=== PATIENT | female | born 1945 | race Caucasian/White ===

== ENCOUNTER 2023-11-12 12:35 | Observation (INO) | payer MEDICARE ==
[2023-11-12] MEDS ORDERED: DUONEB 0.5-3 MG/3 ml Neb IH ONE (13:03)
[2023-11-12] MEDS: DUONEB 0.5-3 MG/3 ml Neb IH ONE (13:04)
--- NOTE | 2023-11-12 13:04 | ERPHSYRPT ---
- History of Present Illness Time Seen by Provider: 11/12/23 12:50 Source: patient Exam Limitations: no limitations Patient Subjective Stated Complaint: PT HERE FOR SOB FOR A WEEK NOW WORSE THE LAST 12 HOURS WITH A DRY COUGH, NO FEVER. Triage Nursing Assessment: PT ALERT, WALKED IN, RESP LABORED WITH EXCERTION, DRY COUGH. AUDIBLE WHEEXES HEARD, NO EDEMA NOTED, MOVES ALL EXT WELL Physician History: Patient is a 78-year-old female presents to our ED for evaluation of shortness of breath x 1 week. Shortness of breath is associated with a dry cough. Symptoms have been progressive. Patient states that shortness of breath became significantly worse approximately 12 hours prior to arrival. No associated chest pain. No nausea vomiting or diaphoresis. Audible wheezing observed during triage. Patient states he is otherwise healthy. She voices no other complaints or concerns at this time. Portions of this note were created with voice recognition technology. There may be grammatical, spelling, punctuation or sound alike errors Timing/Duration: week(s) (1 week) Activities at Onset: activity Severity of Dyspnea-Max: moderate Severity of Dyspnea-Current: mild Possible Cause: no prior episodes Modifying Factors: Improves With: activity Associated Symptoms: cough Allergies/Adverse Reactions: tetracycline Allergy (Verified 11/12/23 14:30) Home Medications: No Reportable Medications [No Reported Medications] 11/12/23 [History] Hx Tetanus, Diphtheria Vaccination/Date Given: No Hx Influenza Vaccination/Date Given: No Hx Pneumococcal Vaccination/Date Given: Yes Immunizations Up to Date: Yes Travel Risk - International Travel Have you traveled outside of the country in past 3 weeks: No - Coronavirus Screening Are you exhibiting any of the following symptoms?: Yes Symptoms: Cough: New Onset, Shortness of Breath Close contact with a COVID-19 positive Pt in past 14-21 Days: No - Vaccine Status Have you recieved a Covid-19 vaccination: Yes Pulling Unit Floorhand: Unknown - Vaccination Dates Date of 2cond Vaccination (if applicable): 2020 Dates if Unknown: ? - Review of Systems Constitutional: No Symptoms, No Fever, No Chills Eyes: No Symptoms Ears, Nose, & Throat: No Symptoms Respiratory: No Symptoms, No Cough, No Dyspnea Cardiac: No Symptoms, No Chest Pain, No Edema, No Syncope Abdominal/Gastrointestinal: No Symptoms, No Abdominal Pain, No Nausea, No Vomiting, No Diarrhea Genitourinary Symptoms: No Symptoms, No Dysuria Musculoskeletal: No Symptoms, No Back Pain, No Neck Pain Skin: No Symptoms, No Rash Neurological: No Symptoms, No Dizziness, No Focal Weakness, No Sensory Changes Psychological: No Symptoms Endocrine: No Symptoms Hematologic/Lymphatic: No Symptoms Immunological/Allergic: No Symptoms All Other Systems: Reviewed and Negative - Past Medical History Pertinent Past Medical History: No Other Medical History: MYNRES DISEASE - Past Surgical History Past Surgical History: Yes Female Surgical History: Hysterectomy - Social History Smoking Status: Former smoker Exposure to second hand smoke: No Drug Use: none Patient Lives Alone: No - Nursing Vital Signs Nursing Vital Signs: Initial Vital Signs Respiratory Rate 34 H 11/12/23 12:40 O2 Sat by Pulse Oximetry 93 L 11/12/23 12:40 Pain Scale Pain Intensity 0 - Physical Exam General Appearance: no apparent distress, alert Eye Exam: PERRL/EOMI Ears, Nose, Throat Exam: hearing grossly normal, normal ENT inspection, normal pharynx Neck Exam: normal inspection, supple Respiratory Exam: diminished breath sounds, rhonchi, wheezing Cardiovascular/Chest Exam: normal heart sounds, regular rate/rhythm Abdominal/Gastrointestinal Exam: soft, No tenderness, No distention, No mass Extremity Exam: non-tender, normal range of motion, normal inspection, no calf tenderness, no pedal edema Neurologic Exam: alert, oriented x 3, cooperative, materials management clerk II-XII nml as tested, sensation nml, No motor deficits Skin Exam: normal color, warm, No dry Lymphatic Exam: No adenopathy SpO2 Interpretation: normal SpO2: 93 O2 Delivery: Room Air - Course Nursing assessment & vital signs reviewed: Yes EKG Interpreted by Me: RATE (86), Sinus Rhythm, NORMAL AXIS, NORMAL INTERVALS - Radiology Exams Chest X-ray Interpretation: Teleradiologist Report (Bilateral lower lobe infiltrates) Ordered Tests: Active Orders 24 hr Category Date Time Status Concrete Pipe Maker STAT Care 11/12/23 12:52 Active EKG-ER Only STAT Care 11/12/23 12:52 Active IV Insertion STAT Care 11/12/23 12:52 Active Pulse Oximetry (ED) STAT Care 11/12/23 12:52 Active CHEST 1 VIEW (PORTABLE) Stat Exams 11/12/23 15:08 Completed CBC W DIFF Stat Lab 11/12/23 12:45 Completed CMP Stat Lab 11/12/23 12:45 Completed D-DIMER QUANTITATIVE Stat Lab 11/12/23 14:43 Completed NT PRO BNPII Stat Lab 11/12/23 12:45 Completed TROPONIN Q4H Lab 11/12/23 12:45 Completed TROPONIN Q4H Lab 11/12/23 17:00 Ordered TROPONIN Q4H Lab 11/12/23 21:00 Ordered Transfer Order Routine Transfer 11/12/23 Ordered Medication Summary Generic Name Dose Route Start Last Admin Trade Name Freq PRN Reason Stop Dose Admin Azithromycin 500 mg in 250 mls @ 250 mls/hr 11/12/23 16:09 Zithromax 500 Mg/ 250 Ml Nacl Premix IV 11/12/23 17:08 STAT STA Ceftriaxone Sodium/Dextrose 2 g in 50 mls @ 100 mls/hr 11/12/23 16:10 Rocephin 2 Gm-D5w 50ml Bag IV 11/12/23 16:39 STAT STA Discontinued Medications Generic Name Dose Route Start Last Admin Trade Name Gm PRN Reason Stop Dose Admin Albuterol/Ipratropium 3 ml 11/12/23 12:52 11/12/23 13:04 Ipratropium/Albuterol Sulfate 3 Ml Ampul.Neb IH 11/12/23 12:53 3 ml STAT ONE Administration Albuterol/Ipratropium Confirm 11/12/23 13:03 Ipratropium/Albuterol Sulfate 3 Ml Ampul.Neb Administered 11/12/23 13:04 Dose 3 ml IH .STK-MED ONE Methylprednisolone Sodium 0 mg 11/12/23 12:52 11/12/23 13:09 Succinate 125 mg/ Sterile IV 11/12/23 12:53 125 mg Water 2 ml STAT ONE Administration Methylprednisolone Sodium Succinate Confirm 11/12/23 13:07 Methylprednis Sod Succ 125 Mg/2 Ml Vial Administered 11/12/23 13:08 Dose 125 mg .ROUTE .STK-MED ONE Potassium Chloride 40 meq 11/12/23 14:25 11/12/23 14:42 Potassium Chloride Tab 10 Meq Tab PO 11/12/23 14:26 40 meq STAT ONE Administration Potassium Chloride Confirm 11/12/23 14:32 Potassium Chloride Tab 10 Meq Tab Administered 11/12/23 14:33 Dose 40 meq .ROUTE .STK-MED ONE Sterile Water Confirm 11/12/23 13:07 Water For Injection,Sterile 10 Ml Vial Administered 11/12/23 13:08 Dose 10 ml IJ .[facility]-MED ONE Lab/Rad Data: Laboratory Result Diagrams 11/12/23 12:45 11/12/23 12:45 Laboratory Results 11/12/23 11/12/23 11/12/23 Range/Units 14:43 13:08 12:45 WBC (4.0-10.5) x10^3/uL RBC (4.1-5.4) x10^6/uL Hgb (12.0-16.0) g/dL Hct (35-47) % MCV (78-100) fL MCH (26-32) pg MCHC (32-36) g/dL RDW (11.5-14.0) % Plt Count (150-450) x10^3/uL MPV (7.5-11.0) fL Gran % (36.0-66.0) % Immature Gran % (Auto) (0.00-0.4) % Nucleat RBC Rel Count (0.00-0.1) % Eos # (Auto) (0-0.5) x10^3/uL Immature Gran # (Auto) (0.00-0.03) x10^3u/L Absolute Lymphs (auto) (1.0-4.6) x10^3/uL Absolute Monos (auto) (0.0-1.3) x10^3/uL Absolute Nucleated RBC (0.00-0.01) x10^3u/L Lymphocytes % (24.0-44.0) % Monocytes % (0.0-12.0) % Eosinophils % (0.00-5.0) % Basophils % (0.0-0.4) % Absolute Granulocytes (1.4-6.9) x10^3/uL Basophils # (0-0.4) x10^3/uL D-Dimer 0.66 H* (0.0-0.50) mg/L Sodium (137-145) mmol/L Potassium (3.5-5.1) mmol/L Chloride (98-107) mmol/L Carbon Dioxide (22-30) mmol/L Anion Gap (5-15) MEQ/L BUN (7-17) mg/dL Creatinine (0.52-1.04) mg/dL Estimated GFR ML/MIN Glucose (74-106) mg/dL Calcium (8.4-10.2) mg/dL Total Bilirubin (0.2-1.3) mg/dL AST (14-36) U/L ALT (0-35) U/L Alkaline Phosphatase (38-126) U/L Troponin I < 0.012 (0.000-0.034) ng/mL NT-Pro-B Natriuret Pep (<300) pg/mL Serum Total Protein (6.3-8.2) g/dL Albumin (3.5-5.0) g/dL Influenza Type A Ag NEGATIVE (NEGATIVE) Influenza Type B Ag NEGATIVE (NEGATIVE) RSV (PCR) NEGATIVE (NEGATIVE) SARS-CoV-2 (PCR) NEGATIVE (NEGATIVE) 11/12/23 11/12/23 Range/Units 12:45 12:45 WBC 8.7 (4.0-10.5) x10^3/uL RBC 4.61 (4.1-5.4) x10^6/uL Hgb 12.1 (12.0-16.0) g/dL Hct 38.4 (35-47) % MCV 83.3 (78-100) fL MCH 26.2 (26-32) pg MCHC 31.5 L (32-36) g/dL RDW 15.1 H (11.5-14.0) % Plt Count 502 H (150-450) x10^3/uL MPV 10.1 (7.5-11.0) fL Gran % 69.4 H (36.0-66.0) % Immature Gran % (Auto) 0.2 (0.00-0.4) % Nucleat RBC Rel Count 0.0 (0.00-0.1) % Eos # (Auto) 0.17 (0-0.5) x10^3/uL Immature Gran # (Auto) 0.02 (0.00-0.03) x10^3u/L Absolute Lymphs (auto) 1.64 (1.0-4.6) x10^3/uL Absolute Monos (auto) 0.75 (0.0-1.3) x10^3/uL Absolute Nucleated RBC 0.00 (0.00-0.01) x10^3u/L Lymphocytes % 18.9 L (24.0-44.0) % Monocytes % 8.6 (0.0-12.0) % Eosinophils % 2.0 (0.00-5.0) % Basophils % 0.9 (0.0-0.4) % Absolute Granulocytes 6.02 (1.4-6.9) x10^3/uL Basophils # 0.08 (0-0.4) x10^3/uL D-Dimer (0.0-0.50) mg/L Sodium 139 (137-145) mmol/L Potassium 3.2 L (3.5-5.1) mmol/L Chloride 102 (98-107) mmol/L Carbon Dioxide 25 (22-30) mmol/L Anion Gap 15.1 H (5-15) MEQ/L BUN 24 H (7-17) mg/dL Creatinine 1.34 H (0.52-1.04) mg/dL Estimated GFR 40.1 ML/MIN Glucose 115 H (74-106) mg/dL Calcium 10.0 (8.4-10.2) mg/dL Total Bilirubin 0.50 (0.2-1.3) mg/dL AST 32 (14-36) U/L ALT 28 (0-35) U/L Alkaline Phosphatase 98 (38-126) U/L Troponin I (0.000-0.034) ng/mL NT-Pro-B Natriuret Pep 73.6 (<300) pg/mL Serum Total Protein 8.4 H (6.3-8.2) g/dL Albumin 4.5 (3.5-5.0) g/dL Influenza Type A Ag (NEGATIVE) Influenza Type B Ag (NEGATIVE) RSV (PCR) (NEGATIVE) SARS-CoV-2 (PCR) (NEGATIVE) - Progress Progress: improved Air Movement: good Progress Note: 78-year-old female presents to our ED with shortness of breath. Physical exam reveals coarse diminished breath sounds with scattered wheezes. Chest x-ray reveals bilateral lower lobe infiltrates. Patient received albuterol nebulizer treatment Solu-Medrol IV antibiotics including azithromycin and Rocephin. Potassium 3.2. Potassium replacement administered. Acute renal injury observed on today's CMP. Case discussed with Dr. Tavarez who accepts admission at 4:21 PM. Plan of care discussed with patient. She agrees to admission at [facility] for further evaluation and treatment. Complexity problem addressed is moderate acute complicated No critical care time Complex of data reviewed and analyzed is extensive. Test ordered test reviewed. Results analyzed and correlated clinically with history and physical examination. Dr. Gonzalez independently reviewed the EKG. Management discussed with hospitalist who accepts admission to observation. Risk of complication and or risk of morbidity/mortality of patient management is high. Patient requires hospitalization for further evaluation and treatment. Vital stable. Time spent to admit patient is approximately 20 minutes. Plan of care established for shared decision making. No social determinants of health present impede follow-up. Portions of this note were created with voice recognition technology. There may be grammatical, spelling, punctuation or sound alike errors 11/12/23 16:27 Blood Culture(s) Obtained: Yes Antibiotics given: Yes Discussed with : Claudio Will see patient in: hospital (observation) Counseled pt/family regarding: lab results, diagnosis, rad results - Departure Departure Disposition: Observation Clinical Impression: Hypokalemia, Acute renal injury, Pneumonia, Shortness of breath Condition: Stable Critical Care Time: No Referrals: TOOTIE MARLEY, [Primary Care Provider] - Follow up/PCP as directed
[2023-11-12] MEDS ORDERED: solu-MEDROL ONE (13:07)
[2023-11-12] MEDS ORDERED: Sterile H2O 10 ml IJ ONE (13:07)
[2023-11-12] MEDS: solu-MEDROL 125 MG, Sterile H2O 10 ml 2 ML IV ONE (13:09)
[2023-11-12 13:13] LABS: Absolute Neutrophil Ct (ANC) 6.02 x10^3/uL (1.4-6.9); BASOPHIL % 0.9 % (0.0-0.4); Basophil (Absolute #) 0.08 x10^3/uL (0-0.4); Eosinophil (Absolute #) 0.17 x10^3/uL (0-0.5); Hematocrit 38.4 % (35-47); Hemoglobin 12.1 g/dL (12.0-16.0); IMMATURE GRAN # 0.02 x10^3u/L (0.00-0.03); IMMATURE GRAN % 0.2 % (0.00-0.4); Lymphocyte (Absolute #) 1.64 x10^3/uL (1.0-4.6); Lymphocytes % 18.9 % (24.0-44.0); Mean Cell Volume 83.3 fL (78-100); Mean Corpuscular Hemoglobin 26.2 pg (26-32); Mean Corpuscular Hgb Concent. 31.5 g/dL (32-36); Mean Platelet Volume 10.1 fL (7.5-11.0); Monocyte (Absolute #) 0.75 x10^3/uL (0.0-1.3); Monocytes % 8.6 % (0.0-12.0); Neutrophil % 69.4 % (36.0-66.0); Platelet Count 502 x10^3/uL (150-450); Red Blood Count 4.61 x10^6/uL (4.1-5.4); Red Cell Distribution Width 15.1 % (11.5-14.0); White Blood Count 8.7 x10^3/uL (4.0-10.5)
[2023-11-12 13:43] LABS: ALBUMIN 4.5 g/dL (3.5-5.0); ANION GAP 15.1 MEQ/L (5-15); BILIRUBIN,TOTAL 0.5 mg/dL (0.2-1.3); Creatinine 1 1.34 mg/dL (0.52-1.04); EST GLOMERULAR FILTRATION RATE 40.1 ML/MIN; NT PRO BNPII 73.6 pg/mL (<300); Potassium 3.2 mmol/L (3.5-5.1); Total Protein 8.4 g/dL (6.3-8.2)
[2023-11-12 13:51] LABS: INFLUENZA A NEGATIVE (NEGATIVE); INFLUENZA B NEGATIVE (NEGATIVE); RESPIRATORY SYNCTIAL VIRUS NEGATIVE (NEGATIVE); SARS-CoV-2 Xpert Express NEGATIVE (NEGATIVE)
[2023-11-12] MEDS ORDERED: Klor Con ONE (14:32)
[2023-11-12] MEDS: Klor Con PO ONE (14:42)
--- NOTE | 2023-11-12 16:01 | XRAY ---
Indication: Short of breath. Comparison: September 11, 2018 Portable chest demonstrates new minimal hazy bibasilar infiltrates versus atelectasis. Remaining heart and lungs unremarkable again with incidental tiny calcified granulomas. Bony thorax intact again with mild degenerative changes.
[2023-11-12] MEDS ORDERED: ROCEPHIN 2 Gm-D5w 50ML BAG** 2 G/50 ML IVPB IV ONE (16:44)
[2023-11-12] MEDS: ROCEPHIN 2 Gm-D5w 50ML BAG** 2 G/50 ML IVPB IV STA (16:48)
--- NOTE | 2023-11-12 17:52 | PCM.HP ---
History of Present Illness - Chief Complaint Chief Complaint: SOB, Pneumonia Date: 11/12/23 History of Present Illness: is a 78 year old female with pmhx of menier's disease. She presented to our ED for evaluation of shortness of breath x 1 week. Shortness of breath is associated with a dry cough. Symptoms have been progressive. Patient states that shortness of breath became significantly worse approximately 12 hours prior to arrival. No associated chest pain. No nausea vomiting or diaphoresis. Patient states he is otherwise healthy. She voices no other complaints or concerns at this time. She continues to have wheezing in BLLL. Will continue duo nebs, and antibiotocs. She is at baseline RA. D-dimer elevated, therapeutic lovenox started. Will hold home med for menier's. If kidney function improves will order CTA. Will start IVF. She denies, CP, Abd. pain, N/V/D. She is very anxious but refuses any further meds at this time. - Review of Systems Constitutional: No Fever, No Chills Eyes: No Symptoms Ears, Nose, & Throat: No Symptoms Respiratory: Short Of Breath, Wheezing Cardiac: No Chest Pain, No Edema, No Syncope Abdominal/Gastrointestinal: No Abdominal Pain, No Nausea, No Vomiting, No Diarrhea Genitourinary Symptoms: No Dysuria Musculoskeletal: No Back Pain, No Neck Pain Skin: No Rash Neurological: No Dizziness, No Focal Weakness, No Sensory Changes Psychological: No Symptoms Endocrine: No Symptoms Hematologic/Lymphatic: No Symptoms Immunological/Allergic: No Symptoms Medications & Allergies Home Medications: Home Medication List Triamterene/Hydrochlorothiazid [Triamterene-Hctz 75-50 mg Tab] 1 each PO DAILY 11/12/23 [History Confirmed 11/12/23] Allergies/Adverse Reactions: Allergies Allergy/AdvReac Type Severity Reaction Status Date / Time tetracycline Allergy Verified 11/12/23 14:30 - Past Medical History Past Medical History: No Comment: MYNRES DISEASE - Past Surgical History Past Surgical History: Yes Female Surgical History: Hysterectomy - Social History Smoking Status: Former smoker Exposure to second hand smoke: No Alcohol: None Drug Use: none - Physical Exam Vital Signs: Vital Signs - 24 hr Temp Pulse Resp BP BP Pulse Ox 11/12/23 17:30 97.9 F 94 H 16 143/61 94 L 11/12/23 17:00 80 22 116/62 93 L 11/12/23 16:32 93 L 11/12/23 16:30 129/64 91 L 11/12/23 16:00 83 24 131/58 92 L 11/12/23 15:30 83 29 H 135/65 94 L 11/12/23 15:00 82 25 H 128/62 96 11/12/23 14:30 80 25 H 120/68 95 11/12/23 14:00 81 30 H 123/67 94 L 11/12/23 13:30 88 26 H 128/83 89 L 11/12/23 13:17 95 11/12/23 13:05 80 24 94 L 11/12/23 13:01 84 25 H 133/67 96 11/12/23 12:41 97.4 F 88 34 H 161/100 93 L 11/12/23 12:40 34 H 93 L General Appearance: no apparent distress, alert Neurologic Exam: alert, oriented x 3, cooperative, normal mood/affect, nml cerebellar function, nml station & gait, sensation nml, No motor deficits Eye Exam: PERRL/EOMI, eyes nml inspection Ears, Nose, Throat Exam: normal ENT inspection, TMs normal, pharynx normal, moist mucous membranes Neck Exam: normal inspection, non-tender, supple, full range of motion Respiratory Exam: wheezing (BLLL), No respiratory distress Cardiovascular Exam: regular rate/rhythm, normal heart sounds, normal peripheral pulses Gastrointestinal/Abdomen Exam: soft, normal bowel sounds, No tenderness, No mass Back Exam: normal inspection, normal range of motion, No CVA tenderness, No vertebral tenderness Extremity Exam: normal inspection, normal range of motion, pelvis stable Skin Exam: normal color, warm, dry, No rash Lymphatic Exam: No adenopathy Results - Labs Lab/Micro Results: Lab Results-Last 24 Hours 11/12/23 11/12/23 11/12/23 Range/Units 12:45 12:45 12:45 WBC 8.7 (4.0-10.5) x10^3/uL RBC 4.61 (4.1-5.4) x10^6/uL Hgb 12.1 (12.0-16.0) g/dL Hct 38.4 (35-47) % MCV 83.3 (78-100) fL MCH 26.2 (26-32) pg MCHC 31.5 L (32-36) g/dL RDW 15.1 H (11.5-14.0) % Plt Count 502 H (150-450) x10^3/uL MPV 10.1 (7.5-11.0) fL Gran % 69.4 H (36.0-66.0) % Immature Gran % (Auto) 0.2 (0.00-0.4) % Nucleat RBC Rel Count 0.0 (0.00-0.1) % Eos # (Auto) 0.17 (0-0.5) x10^3/uL Immature Gran # (Auto) 0.02 (0.00-0.03) x10^3u/L Absolute Lymphs (auto) 1.64 (1.0-4.6) x10^3/uL Absolute Monos (auto) 0.75 (0.0-1.3) x10^3/uL Absolute Nucleated RBC 0.00 (0.00-0.01) x10^3u/L Lymphocytes % 18.9 L (24.0-44.0) % Monocytes % 8.6 (0.0-12.0) % Eosinophils % 2.0 (0.00-5.0) % Basophils % 0.9 (0.0-0.4) % Absolute Granulocytes 6.02 (1.4-6.9) x10^3/uL Basophils # 0.08 (0-0.4) x10^3/uL D-Dimer (0.0-0.50) mg/L Sodium 139 (137-145) mmol/L Potassium 3.2 L (3.5-5.1) mmol/L Chloride 102 (98-107) mmol/L Carbon Dioxide 25 (22-30) mmol/L Anion Gap 15.1 H (5-15) MEQ/L BUN 24 H (7-17) mg/dL Creatinine 1.34 H (0.52-1.04) mg/dL Estimated GFR 40.1 ML/MIN Glucose 115 H (74-106) mg/dL Calcium 10.0 (8.4-10.2) mg/dL Total Bilirubin 0.50 (0.2-1.3) mg/dL AST 32 (14-36) U/L ALT 28 (0-35) U/L Alkaline Phosphatase 98 (38-126) U/L Troponin I < 0.012 (0.000-0.034) ng/mL NT-Pro-B Natriuret Pep 73.6 (<300) pg/mL Serum Total Protein 8.4 H (6.3-8.2) g/dL Albumin 4.5 (3.5-5.0) g/dL Influenza Type A Ag (NEGATIVE) Influenza Type B Ag (NEGATIVE) RSV (PCR) (NEGATIVE) SARS-CoV-2 (PCR) (NEGATIVE) 11/12/23 11/12/23 11/12/23 Range/Units 13:08 14:43 16:45 WBC (4.0-10.5) x10^3/uL RBC (4.1-5.4) x10^6/uL Hgb (12.0-16.0) g/dL Hct (35-47) % MCV (78-100) fL MCH (26-32) pg MCHC (32-36) g/dL RDW (11.5-14.0) % Plt Count (150-450) x10^3/uL MPV (7.5-11.0) fL Gran % (36.0-66.0) % Immature Gran % (Auto) (0.00-0.4) % Nucleat RBC Rel Count (0.00-0.1) % Eos # (Auto) (0-0.5) x10^3/uL Immature Gran # (Auto) (0.00-0.03) x10^3u/L Absolute Lymphs (auto) (1.0-4.6) x10^3/uL Absolute Monos (auto) (0.0-1.3) x10^3/uL Absolute Nucleated RBC (0.00-0.01) x10^3u/L Lymphocytes % (24.0-44.0) % Monocytes % (0.0-12.0) % Eosinophils % (0.00-5.0) % Basophils % (0.0-0.4) % Absolute Granulocytes (1.4-6.9) x10^3/uL Basophils # (0-0.4) x10^3/uL D-Dimer 0.66 H* (0.0-0.50) mg/L Sodium (137-145) mmol/L Potassium (3.5-5.1) mmol/L Chloride (98-107) mmol/L Carbon Dioxide (22-30) mmol/L Anion Gap (5-15) MEQ/L BUN (7-17) mg/dL Creatinine (0.52-1.04) mg/dL Estimated GFR ML/MIN Glucose (74-106) mg/dL Calcium (8.4-10.2) mg/dL Total Bilirubin (0.2-1.3) mg/dL AST (14-36) U/L ALT (0-35) U/L Alkaline Phosphatase (38-126) U/L Troponin I < 0.012 (0.000-0.034) ng/mL NT-Pro-B Natriuret Pep (<300) pg/mL Serum Total Protein (6.3-8.2) g/dL Albumin (3.5-5.0) g/dL Influenza Type A Ag NEGATIVE (NEGATIVE) Influenza Type B Ag NEGATIVE (NEGATIVE) RSV (PCR) NEGATIVE (NEGATIVE) SARS-CoV-2 (PCR) NEGATIVE (NEGATIVE) - Radiology Impressions Radiology Exams & Impressions: Radiology Procedures Category Date Time Status CHEST 1 VIEW (PORTABLE) Stat Exams 11/12/23 15:08 Completed Assessment/Plan (1) Pneumonia Current Visit: Yes Status: Acute Assessment & Plan: - Continue antibiotocs and duonebs - RA- 94% - CXR Portable chest demonstrates new minimal hazy bibasilar infiltrates versus atelectasis. Remaining heart and lungs unremarkable again with incidental tiny calcified granulomas. Bony thorax intact again with mild degenerative changes. - BNP 71 Code(s): J18.9 - PNEUMONIA, UNSPECIFIED ORGANISM (2) Shortness of breath Current Visit: Yes Status: Acute Assessment & Plan: - 2:2 pneumonia - improved on admission - Room air Code(s): R06.02 - SHORTNESS OF BREATH (3) Acute renal injury Current Visit: Yes Status: Acute Assessment & Plan: - creat 1.34- appears to be chronic per old labs - Pt reports no CKD hx - she does take medication for menier's that could cause worsening. - Will start IVF- NS @ 73 Code(s): N17.9 - ACUTE KIDNEY FAILURE, UNSPECIFIED (4) Hypokalemia Current Visit: Yes Status: Acute Assessment & Plan: - K+ 3.2 replaced in ER - trend Code(s): E87.6 - HYPOKALEMIA (5) Obesity (BMI 30.0-34.9) Current Visit: Yes Status: Chronic Assessment & Plan: - advised diet and exercise control. Code(s): E66.9 - OBESITY, UNSPECIFIED (6) Elevated d-dimer Current Visit: Yes Status: Acute Assessment & Plan: - d-dimer 0.66 - 2:2 pneumonia ? - will order CTA when MERT improves - therapeutic Lovenox for now Code(s): R79.89 - OTHER SPECIFIED ABNORMAL FINDINGS OF BLOOD CHEMISTRY (7) Anxiety Current Visit: Yes Status: Acute Assessment & Plan: - refused medication for this - states she had 3 family members recently pass away in the hospital - anxiety r/t this. Code(s): F41.9 - ANXIETY DISORDER, UNSPECIFIED (8) Meniere disease Current Visit: Yes Status: Chronic Assessment & Plan: - Hold home meds until MERT improves VTE: lovenox Next of Kin: Spouse- Elier Doty D/C plan: tomorrow Code status: Full Code(s): H81.09 - MENIERE'S DISEASE, UNSPECIFIED EAR Telemedicine Encounter - Telemedicine Encounter Telemedicine Encounter: The entirety of this encounter was performed via Telemedicine"
[2023-11-12] MEDS ORDERED: TYLENOL 325 MG PO PRN (19:11)
--- NOTE | 2023-11-12 19:38 | TM.IN ---
Tele-Medicine Incident Note - Incident Note Tel-Medicine Incident Note: 11/12/231935 "VeronicaeenKOSTAS Louise andhavediscussed pertinent aspects of their care with Soni Macias NP,and agree with the history, physical exam (any modifications based on my personal exam will be noted below), assessment, and plan as outlined in original note. Please see immediately below for my summary of findings and additional assessment and plan along with any meaningful corrections/explanations to the Subjective/Objective portions of the TY note will be noted." Patient has had a cough and dyspnea Coarse breath sounds at the bases. Labs reviewed Continue antibiotics. Plan to pursue CTA chest to rule out PE in AM; empiric full dose Lovenox ordered overnight. My portion of the encounter took place via telemedicine. Telemedicine Encounter - Telemedicine Encounter Telemedicine Encounter: The entirety of this encounter was performed via Telemedicine"
[2023-11-12] MEDS: ROCEPHIN 1 GM / 100 ML NaCl 1 GM/100 ML IVPB IV SCH (23:18)
[2023-11-12] MEDS: Zithromax 500 MG/ 250 ML NaCl Premix 500 MG/250 ML IVPB IV SCH (23:30)
[2023-11-12] MEDS: Sodium Chloride 0.9% 1000 ML 1,000 ML IV SCH (23:30)
[2023-11-12] MEDS: ENOXAPARIN SODIUM SQ SCH (23:31)
[2023-11-12] MEDS: Zithromax 500 MG/ 250 ML NaCl Premix 500 MG/250 ML IVPB IV STA (23:35)
[2023-11-13] MEDS: DUONEB 0.5-3 MG/3 ml Neb IH SCH (01:23)
[2023-11-13 05:28] LABS: Hematocrit 35.7 % (35-47); Hemoglobin 10.9 g/dL (12.0-16.0); Mean Cell Volume 84.2 fL (78-100); Mean Corpuscular Hemoglobin 25.7 pg (26-32); Mean Corpuscular Hgb Concent. 30.5 g/dL (32-36); Mean Platelet Volume 10.7 fL (7.5-11.0); Platelet Count 456 x10^3/uL (150-450); Red Blood Count 4.24 x10^6/uL (4.1-5.4); Red Cell Distribution Width 15.1 % (11.5-14.0); White Blood Count 7.6 x10^3/uL (4.0-10.5)
[2023-11-13 06:34] LABS: ALBUMIN 4.2 g/dL (3.5-5.0); ANION GAP 15.2 MEQ/L (5-15); BILIRUBIN,TOTAL 0.3 mg/dL (0.2-1.3); Calcium 9.5 mg/dL (8.4-10.2); Creatinine 1 1.07 mg/dL (0.52-1.04); EST GLOMERULAR FILTRATION RATE 52.5 ML/MIN; Potassium 3.4 mmol/L (3.5-5.1); Total Protein 7.9 g/dL (6.3-8.2)
[2023-11-13 08:39] VITALS: TEMP 97.7
--- NOTE | 2023-11-13 10:01 | XRAY ---
Indication: Elevated d-dimer. Multiple contiguous axial images obtained through the chest using 80 cc Isovue 370 contrast and PE protocol. Comparison: None Good opacification of the pulmonary arteries to include the lobar and segmental branches. No pulmonary embolus. Heart is not enlarged. Aorta minimally atherosclerotic without aneurysm/dissection. Right hilar lymphadenopathy measuring at least 6.2 x 4.0 x 5.2 cm effacing the right main and right middle lobe bronchi. Incidental tiny mediastinal and bilateral hilar calcified nodes. Lungs demonstrate mild diffuse pulmonary emphysema and scattered tiny calcified granulomas bilaterally. Mild right base and minimal left base dependent atelectasis. No infiltrate or effusion. Bony thorax intact with osteopenia and minimal/mild degenerative changes throughout the spine. Limited upper abdomen demonstrates colonic diverticulosis, 2.8 cm left lobe hepatic cyst, and 1.1 cm left mid renal cortical cyst. Impression: 1. Negative pulmonary embolus. 2. Right hilar lymphadenopathy with mass effect concerning for primary versus metastatic malignancy. 3. Chronic findings including pulmonary emphysema, arteriosclerotic disease, chronic bony findings, colonic diverticulosis, hepatic/left renal cysts, and old granulomatous disease.
[2023-11-13] MEDS: Klor Con PO SCH (10:34)
[2023-11-13] MEDS: ROCEPHIN 1 GM / 100 ML NaCl 1 GM/100 ML IVPB IV SCH (10:34)
--- NOTE | 2023-11-13 11:51 | PCM.DS ---
Discharge Summary Date of Admission: 11/12/23 17:20 Date of Discharge: 11/13/23 Admitting Physician: JEREL MOHAMUD MD Primary Care Provider: TOOTIE MARLEY DO Allergies Allergies tetracycline Allergy (Verified 11/12/23 14:30) Hospital Summary - Hospital Course Hospital Course: 11/12/23 is a 78 year old female with pmhx of menier's disease. She presented to our ED for evaluation of shortness of breath x 1 week. Shortness of breath i s associated with a dry cough. Symptoms have been progressive. Patient states that shortness of breath became significantly worse approximately 12 hours prior to arrival. No associated chest pain. No nausea vomiting or diaphoresis. Patient states he is otherwise healthy. She voices no other complaints or concerns at this time. She continues to have wheezing in BLLL. Will continue duonebs, and antibiotocs. She is at baseline RA. D-dimer elevated, therapeutic lovenox started. Will hold home med for menier's. If kidney function improves will order CTA. Will start IVF. She denies, CP, Abd. pain, N/V/D. She is very anxious but refuses any further meds at this time. 11/13/23 Pt resting in bed. She would like to go home today. CT reviewed with pt. She will need to f/u with pulmonology OP. Will make an appointment. She is requesting education on how to use home albuterol inhaler. Will have RT assist with education. Pt denies CP, SOB, abd. pain, N/V/D. - Vitals & Intake/Output Vital Signs: Vital Signs Temperature 97.7 F 11/13/23 08:00 Pulse Rate 95 H 11/13/23 08:00 Respiratory Rate 13 11/13/23 08:00 Blood Pressure 119/57 11/13/23 08:00 O2 Sat by Pulse Oximetry 97 11/13/23 08:00 Intake & Output: Intake & Output 11/10/23 11/11/23 11/12/23 11/13/23 11:59 11:59 11:59 11:59 Intake Total 1405 Output Total 600 Balance 805 Weight 75.5 kg - Lab Result Diagrams: 11/13/23 04:47 11/13/23 04:47 Lab Results-Last 24 Hrs: Lab Results-Last 24 Hours 11/12/23 11/12/23 11/12/23 Range/Units 12:45 12:45 12:45 WBC 8.7 (4.0-10.5) x10^3/uL RBC 4.61 (4.1-5.4) x10^6/uL Hgb 12.1 (12.0-16.0) g/dL Hct 38.4 (35-47) % MCV 83.3 (78-100) fL MCH 26.2 (26-32) pg MCHC 31.5 L (32-36) g/dL RDW 15.1 H (11.5-14.0) % Plt Count 502 H (150-450) x10^3/uL MPV 10.1 (7.5-11.0) fL Gran % 69.4 H (36.0-66.0) % Immature Gran % (Auto) 0.2 (0.00-0.4) % Nucleat RBC Rel Count 0.0 (0.00-0.1) % Eos # (Auto) 0.17 (0-0.5) x10^3/uL Immature Gran # (Auto) 0.02 (0.00-0.03) x10^3u/L Absolute Lymphs (auto) 1.64 (1.0-4.6) x10^3/uL Absolute Monos (auto) 0.75 (0.0-1.3) x10^3/uL Absolute Nucleated RBC 0.00 (0.00-0.01) x10^3u/L Lymphocytes % 18.9 L (24.0-44.0) % Monocytes % 8.6 (0.0-12.0) % Eosinophils % 2.0 (0.00-5.0) % Basophils % 0.9 (0.0-0.4) % Absolute Granulocytes 6.02 (1.4-6.9) x10^3/uL Basophils # 0.08 (0-0.4) x10^3/uL D-Dimer (0.0-0.50) mg/L Sodium 139 (137-145) mmol/L Potassium 3.2 L (3.5-5.1) mmol/L Chloride 102 (98-107) mmol/L Carbon Dioxide 25 (22-30) mmol/L Anion Gap 15.1 H (5-15) MEQ/L BUN 24 H (7-17) mg/dL Creatinine 1.34 H (0.52-1.04) mg/dL Estimated GFR 40.1 ML/MIN Glucose 115 H (74-106) mg/dL Hemoglobin A1c (4.5-6.0) % Calcium 10.0 (8.4-10.2) mg/dL Magnesium (1.6-2.3) mg/dL Total Bilirubin 0.50 (0.2-1.3) mg/dL AST 32 (14-36) U/L ALT 28 (0-35) U/L Alkaline Phosphatase 98 (38-126) U/L Troponin I < 0.012 (0.000-0.034) ng/mL NT-Pro-B Natriuret Pep 73.6 (<300) pg/mL Serum Total Protein 8.4 H (6.3-8.2) g/dL Albumin 4.5 (3.5-5.0) g/dL Influenza Type A Ag (NEGATIVE) Influenza Type B Ag (NEGATIVE) RSV (PCR) (NEGATIVE) SARS-CoV-2 (PCR) (NEGATIVE) 11/12/23 11/12/23 11/12/23 Range/Units 12:45 13:08 14:43 WBC (4.0-10.5) x10^3/uL RBC (4.1-5.4) x10^6/uL Hgb (12.0-16.0) g/dL Hct (35-47) % MCV (78-100) fL MCH (26-32) pg MCHC (32-36) g/dL RDW (11.5-14.0) % Plt Count (150-450) x10^3/uL MPV (7.5-11.0) fL Gran % (36.0-66.0) % Immature Gran % (Auto) (0.00-0.4) % Nucleat RBC Rel Count (0.00-0.1) % Eos # (Auto) (0-0.5) x10^3/uL Immature Gran # (Auto) (0.00-0.03) x10^3u/L Absolute Lymphs (auto) (1.0-4.6) x10^3/uL Absolute Monos (auto) (0.0-1.3) x10^3/uL Absolute Nucleated RBC (0.00-0.01) x10^3u/L Lymphocytes % (24.0-44.0) % Monocytes % (0.0-12.0) % Eosinophils % (0.00-5.0) % Basophils % (0.0-0.4) % Absolute Granulocytes (1.4-6.9) x10^3/uL Basophils # (0-0.4) x10^3/uL D-Dimer 0.66 H* (0.0-0.50) mg/L Sodium (137-145) mmol/L Potassium (3.5-5.1) mmol/L Chloride (98-107) mmol/L Carbon Dioxide (22-30) mmol/L Anion Gap (5-15) MEQ/L BUN (7-17) mg/dL Creatinine (0.52-1.04) mg/dL Estimated GFR ML/MIN Glucose (74-106) mg/dL Hemoglobin A1c 5.69 (4.5-6.0) % Calcium (8.4-10.2) mg/dL Magnesium (1.6-2.3) mg/dL Total Bilirubin (0.2-1.3) mg/dL AST (14-36) U/L ALT (0-35) U/L Alkaline Phosphatase (38-126) U/L Troponin I (0.000-0.034) ng/mL NT-Pro-B Natriuret Pep (<300) pg/mL Serum Total Protein (6.3-8.2) g/dL Albumin (3.5-5.0) g/dL Influenza Type A Ag NEGATIVE (NEGATIVE) Influenza Type B Ag NEGATIVE (NEGATIVE) RSV (PCR) NEGATIVE (NEGATIVE) SARS-CoV-2 (PCR) NEGATIVE (NEGATIVE) 11/12/23 11/12/23 11/13/23 Range/Units 16:45 21:15 04:30 WBC (4.0-10.5) x10^3/uL RBC (4.1-5.4) x10^6/uL Hgb (12.0-16.0) g/dL Hct (35-47) % MCV (78-100) fL MCH (26-32) pg MCHC (32-36) g/dL RDW (11.5-14.0) % Plt Count (150-450) x10^3/uL MPV (7.5-11.0) fL Gran % (36.0-66.0) % Immature Gran % (Auto) (0.00-0.4) % Nucleat RBC Rel Count (0.00-0.1) % Eos # (Auto) (0-0.5) x10^3/uL Immature Gran # (Auto) (0.00-0.03) x10^3u/L Absolute Lymphs (auto) (1.0-4.6) x10^3/uL Absolute Monos (auto) (0.0-1.3) x10^3/uL Absolute Nucleated RBC (0.00-0.01) x10^3u/L Lymphocytes % (24.0-44.0) % Monocytes % (0.0-12.0) % Eosinophils % (0.00-5.0) % Basophils % (0.0-0.4) % Absolute Granulocytes (1.4-6.9) x10^3/uL Basophils # (0-0.4) x10^3/uL D-Dimer (0.0-0.50) mg/L Sodium (137-145) mmol/L Potassium (3.5-5.1) mmol/L Chloride (98-107) mmol/L Carbon Dioxide (22-30) mmol/L Anion Gap (5-15) MEQ/L BUN (7-17) mg/dL Creatinine (0.52-1.04) mg/dL Estimated GFR ML/MIN Glucose (74-106) mg/dL Hemoglobin A1c (4.5-6.0) % Calcium (8.4-10.2) mg/dL Magnesium 1.7 (1.6-2.3) mg/dL Total Bilirubin (0.2-1.3) mg/dL AST (14-36) U/L ALT (0-35) U/L Alkaline Phosphatase (38-126) U/L Troponin I < 0.012 < 0.012 (0.000-0.034) ng/mL NT-Pro-B Natriuret Pep (<300) pg/mL Serum Total Protein (6.3-8.2) g/dL Albumin (3.5-5.0) g/dL Influenza Type A Ag (NEGATIVE) Influenza Type B Ag (NEGATIVE) RSV (PCR) (NEGATIVE) SARS-CoV-2 (PCR) (NEGATIVE) 11/13/23 11/13/23 Range/Units 04:47 04:47 WBC 7.6 (4.0-10.5) x10^3/uL RBC 4.24 (4.1-5.4) x10^6/uL Hgb 10.9 L (12.0-16.0) g/dL Hct 35.7 (35-47) % MCV 84.2 (78-100) fL MCH 25.7 L (26-32) pg MCHC 30.5 L (32-36) g/dL RDW 15.1 H (11.5-14.0) % Plt Count 456 H (150-450) x10^3/uL MPV 10.7 (7.5-11.0) fL Gran % (36.0-66.0) % Immature Gran % (Auto) (0.00-0.4) % Nucleat RBC Rel Count (0.00-0.1) % Eos # (Auto) (0-0.5) x10^3/uL Immature Gran # (Auto) (0.00-0.03) x10^3u/L Absolute Lymphs (auto) (1.0-4.6) x10^3/uL Absolute Monos (auto) (0.0-1.3) x10^3/uL Absolute Nucleated RBC (0.00-0.01) x10^3u/L Lymphocytes % (24.0-44.0) % Monocytes % (0.0-12.0) % Eosinophils % (0.00-5.0) % Basophils % (0.0-0.4) % Absolute Granulocytes (1.4-6.9) x10^3/uL Basophils # (0-0.4) x10^3/uL D-Dimer (0.0-0.50) mg/L Sodium 140 (137-145) mmol/L Potassium 3.4 L (3.5-5.1) mmol/L Chloride 107 (98-107) mmol/L Carbon Dioxide 21 L (22-30) mmol/L Anion Gap 15.2 H (5-15) MEQ/L BUN 24 H (7-17) mg/dL Creatinine 1.07 H (0.52-1.04) mg/dL Estimated GFR 52.5 ML/MIN Glucose 152 H (74-106) mg/dL Hemoglobin A1c (4.5-6.0) % Calcium 9.5 (8.4-10.2) mg/dL Magnesium (1.6-2.3) mg/dL Total Bilirubin 0.30 (0.2-1.3) mg/dL AST 28 (14-36) U/L ALT 24 (0-35) U/L Alkaline Phosphatase 98 (38-126) U/L Troponin I (0.000-0.034) ng/mL NT-Pro-B Natriuret Pep (<300) pg/mL Serum Total Protein 7.9 (6.3-8.2) g/dL Albumin 4.2 (3.5-5.0) g/dL Influenza Type A Ag (NEGATIVE) Influenza Type B Ag (NEGATIVE) RSV (PCR) (NEGATIVE) SARS-CoV-2 (PCR) (NEGATIVE) - Radiology Exams Ordered Rad Exams-Entire Visit: Radiology Procedures Category Date Time Status CHEST 1 VIEW (PORTABLE) Stat Exams 11/12/23 15:08 Completed CHEST WITH CONTRAST [CT] Routine Exams 11/13/23 07:49 Completed - Procedures and Test Procedures and Tests throughout Hospitalization: Therapy Orders & Screens 11/13/23 07:01 Oxygen NASAL CANNULA 2 lpm Comment: Diagnosis: SOB, Pneumonia Discharge Exam General Appearance: no apparent distress, alert Neurologic Exam: alert, oriented x 3, cooperative, normal mood/affect, nml cerebellar function, sensation nml, No motor deficits Eye Exam: PERRL, EOMI, eyes nml inspection Ears, Nose, Throat Exam: normal ENT inspection, pharynx normal, moist mucous membranes Neck Exam: normal inspection, non-tender, supple, full range of motion Respiratory Exam: normal breath sounds, lungs clear, No respiratory distress Cardiovascular Exam: regular rate/rhythm, normal heart sounds Gastrointestinal/Abdomen Exam: soft, No tenderness, No mass Pelvic Exam: deferred Rectal Exam: deferred Back Exam: normal inspection, normal range of motion, No CVA tenderness, No vertebral tenderness Extremity Exam: normal inspection, normal range of motion Skin Exam: normal color, warm, dry Final Diagnosis/Problem List - Final Discharge Diagnosis/Problem (1) Pneumonia Current Visit: Yes Status: Acute Code(s): J18.9 - PNEUMONIA, UNSPECIFIED ORGANISM (2) Shortness of breath Current Visit: Yes Status: Acute Code(s): R06.02 - SHORTNESS OF BREATH (3) Acute renal injury Current Visit: Yes Status: Acute Code(s): N17.9 - ACUTE KIDNEY FAILURE, UNSPECIFIED (4) Hypokalemia Current Visit: Yes Status: Acute Code(s): E87.6 - HYPOKALEMIA (5) Obesity (BMI 30.0-34.9) Current Visit: Yes Status: Chronic Code(s): E66.9 - OBESITY, UNSPECIFIED (6) Elevated d-dimer Current Visit: Yes Status: Acute Code(s): R79.89 - OTHER SPECIFIED ABNORMAL FINDINGS OF BLOOD CHEMISTRY (7) Anxiety Current Visit: Yes Status: Acute Code(s): F41.9 - ANXIETY DISORDER, UNSPECIFIED (8) Meniere disease Current Visit: Yes Status: Chronic Assessment & Plan: (1) Pneumonia Current Visit: Yes Status: Acute Assessment & Plan: - Continue antibiotocs and duonebs - RA- 94% - CXR Portable chest demonstrates new minimal hazy bibasilar infiltrates versus atelectasis. Remaining heart and lungs unremarkable again with incidental tiny calcified granulomas. Bony thorax intact again with mild degenerative changes. - BNP 73 11/13 - continue OP antibiotics and inhaler - RT to educate on how to use inhaler at home. Code(s): J18.9 - PNEUMONIA, UNSPECIFIED ORGANISM (2) Shortness of breath Current Visit: Yes Status: Acute Assessment & Plan: - 2:2 pneumonia - improved on admission - Room air 11/13 - CT chest Impression: 1. Negative pulmonary embolus. 2. Right hilar lymphadenopathy with mass effect concerning for primary versus metastatic malignancy. 3. Chronic findings including pulmonary emphysema, arteriosclerotic disease, chronic bony findings, colonic diverticulosis, hepatic/left renal cysts, and old granulomatous disease. - OP appointment made for f/u with Pulmonology - discussed CT resulted with pt - continued RA Code(s): R06.02 - SHORTNESS OF BREATH (3) Acute renal injury Current Visit: Yes Status: Acute Assessment & Plan: - creat 1.34- appears to be chronic per old labs - Pt reports no CKD hx - she does take medication for menier's that could cause worsening. - Will start IVF- NS @ 75 11/13 - MERT improved. - will need to f/u with PCP OP Code(s): N17.9 - ACUTE KIDNEY FAILURE, UNSPECIFIED (4) Hypokalemia Current Visit: Yes Status: Acute Assessment & Plan: - K+ 3.2 replaced in ER - trend 11/13 - K+ 3.4 replaced - will d/c with K+ replacement Code(s): E87.6 - HYPOKALEMIA (5) Obesity (BMI 30.0-34.9) Current Visit: Yes Status: Chronic Assessment & Plan: - advised diet and exercise control. Code(s): E66.9 - OBESITY, UNSPECIFIED (6) Elevated d-dimer Current Visit: Yes Status: Acute Assessment & Plan: - d-dimer 0.66 - 2:2 pneumonia ? - will order CTA when MERT improves - therapeutic Lovenox for now 11/13 - CT negative for PE Code(s): R79.89 - OTHER SPECIFIED ABNORMAL FINDINGS OF BLOOD CHEMISTRY (7) Anxiety Current Visit: Yes Status: Acute Assessment & Plan: - refused medication for this - states she had 3 family members recently pass away in the hospital - anxiety r/t this. 11/13 - improved Code(s): F41.9 - ANXIETY DISORDER, UNSPECIFIED (8) Meniere disease Current Visit: Yes Status: Chronic Assessment & Plan: - Hold home meds until MERT improves Code(s): H81.09 - MENIERE'S DISEASE, UNSPECIFIED EAR - Discharge Discharge Date: 11/13/23 Disposition: Home, Self-Care Condition: Stable Prescriptions: Continue Triamterene/Hydrochlorothiazid [Triamterene-Hctz 75-50 mg Tab] 1 each PO DAILY Instructions: Pneumonia, Adult (DC) Follow up with: EDITA WASHBURN [ACTIVE STAFF] - GAETANO TEJADA, UNIT EDUCATOR [[employer] PROFESSION STAFF] - 11/22/23 2:00 pm
[2023-11-13 12:31] VITALS: BP 117/56
[2023-11-13 12:50] VITALS: PULSE 84; RESP 16; O2SAT 96
[2023-11-13] MEDS ORDERED: Zithromax 500 MG/ 250 ML NaCl Premix 500 MG/250 ML IVPB IV SCH (22:00)
== END 2023-11-13 14:41 | disposition home or self-care (01) ==
LOC: ED 12:35 → MED SURG 17:20
PROVIDERS: ADMIT Internal Medicine; ATTEND Internal Medicine
DX: J18.9 Pneumonia, unspecified organism (principal); R06.02 Shortness of breath; N17.9 Acute kidney failure, unspecified; E87.6 Hypokalemia; E66.9 Obesity, unspecified; R79.89 Other specified abnormal findings of blood chemistry; F41.9 Anxiety disorder, unspecified; H81.09 Meniere's disease, unspecified ear; Z20.828 Contact with and (suspected) exposure to other viral communicable diseases
CPT/HCPCS: 0241U; 36000; 36415; 71045; 71260; 80053; 83036; 83735; 83880; 84484; 85025; 85027; 85379; 93005; 93041; 94640; 94760; 94762; 96374; 99285; 93268; J0456; J0696; J1650; J2930; Q3014; A9270-GY; G0378

== ENCOUNTER 2023-12-08 10:44 | Emergency (ER) | payer MEDICARE ==
[2023-12-08 11:04] VITALS: TEMP 97.3
[2023-12-08] MEDS ORDERED: DUONEB 0.5-3 MG/3 ml Neb IH ONE (11:30)
[2023-12-08] MEDS: DUONEB 0.5-3 MG/3 ml Neb IH ONE (11:31)
[2023-12-08] MEDS ORDERED: Sterile H2O 10 ml IJ ONE (11:38)
[2023-12-08] MEDS ORDERED: solu-MEDROL ONE (11:38)
[2023-12-08] MEDS: solu-MEDROL 125 MG, Sterile H2O 10 ml 2 ML IV ONE (11:38)
[2023-12-08 11:45] LABS: A-aADO2 93; ABG HEMOGLOBIN 12.7; ABG POTASSIUM 3.2 (3.5-5.1); ARTERIAL BLD GAS O2 SATURATION 97.6 % (95-100); ARTERIAL BLOOD GAS BASE EXCESS 2.7 (-2.0-2.0); ARTERIAL BLOOD GAS FIO2 28 %; ARTERIAL BLOOD GAS PCO2 25 mmHg (35-45); ARTERIAL BLOOD GAS PO2 75 mmHg (75-100); CARBOXYHEMOGLOBIN 1.5 % THgb (0.0-6.9); HCO3- 23.4 (22-28); HGB O2 SAT 95.6 g/dF (94-100); Lactic Acid 1.3 (0.4-2.0); Methhemoglobin 0.6 % (1.4-1.5); paO2 pAO1 0.45
[2023-12-08 11:46] LABS: ARTERIAL BLOOD GAS pH 7.58 (7.35-7.45)
[2023-12-08 11:47] LABS: ABG SITE LEFT BRACHIAL
[2023-12-08 12:05] LABS: ALBUMIN 4.3 g/dL (3.5-5.0); ANION GAP 15.3 MEQ/L (5-15); BILIRUBIN,TOTAL 0.5 mg/dL (0.2-1.3); Calcium 10.2 mg/dL (8.4-10.2); Creatinine 1 1.29 mg/dL (0.52-1.04); MAGNESIUM 1.7 mg/dL (1.6-2.3); Potassium 3.2 mmol/L (3.5-5.1); Total Protein 8.5 g/dL (6.3-8.2)
[2023-12-08 12:10] VITALS: O2SAT 95
[2023-12-08 12:16] LABS: Absolute Neutrophil Ct (ANC) 8.43 x10^3/uL (1.4-6.9); BASOPHIL % 0.6 % (0.0-0.4); Basophil (Absolute #) 0.06 x10^3/uL (0-0.4); Eosinophil % 1.1 % (0.00-5.0); Eosinophil (Absolute #) 0.12 x10^3/uL (0-0.5); Hematocrit 39.9 % (35-47); Hemoglobin 12.4 g/dL (12.0-16.0); IMMATURE GRAN # 0.04 x10^3u/L (0.00-0.03); IMMATURE GRAN % 0.4 % (0.00-0.4); Lymphocyte (Absolute #) 1.15 x10^3/uL (1.0-4.6); Lymphocytes % 10.8 % (24.0-44.0); Mean Cell Volume 82.6 fL (78-100); Mean Corpuscular Hemoglobin 25.7 pg (26-32); Mean Corpuscular Hgb Concent. 31.1 g/dL (32-36); Mean Platelet Volume 9.9 fL (7.5-11.0); Monocytes % 7.5 % (0.0-12.0); Neutrophil % 79.6 % (36.0-66.0); Platelet Count 535 x10^3/uL (150-450); Red Blood Count 4.83 x10^6/uL (4.1-5.4); Red Cell Distribution Width 15.5 % (11.5-14.0); White Blood Count 10.6 x10^3/uL (4.0-10.5)
[2023-12-08 12:28] LABS: INFLUENZA A NEGATIVE (NEGATIVE); INFLUENZA B NEGATIVE (NEGATIVE); RESPIRATORY SYNCTIAL VIRUS NEGATIVE (NEGATIVE); SARS-CoV-2 Xpert Express NEGATIVE (NEGATIVE)
--- NOTE | 2023-12-08 13:38 | ERPHSYRPT ---
- History of Present Illness Time Seen by Provider: 12/08/23 11:07 Source: patient Exam Limitations: no limitations Patient Subjective Stated Complaint: SOB Triage Nursing Assessment: Patient brought back to ED per w/c and transferred to bed with assist of 2. Patient A+O X3. Patient's skin pink, warm and dry. Patient has increased work of breathing. Patient complains of SOB that has gotten worse over the last couple of days. Initial O2 sat noted to be 87% on room air. Patient placed on oxymask at 5 liters and sat came up to 98%. Patient complains of pain underneath right breast and rib area when taking a deep breath or coughing. Patient complains of non productive cough. Right lower lobe noted to be absent with diminished breath sounds everywhere else. Patient states she was treated two weeks ago for Pneumonia and had a recent pet scan due to a smalll mass noted in right lung. Physician History: 78 years old female with history of COPD, recent pneumonia and found to have a mass in the right lung, had PET scan done at [facility] presented in the ER with 2 days history of increasing pain on the right lower chest with some difficulty breathing. Patient reports getting short of breath with activity. On p resentation her oxygen saturation is 87%. Patient reports this has been going on for the last few weeks to months when she was diagnosed with pneumonia here. She is under process for workup for malignancy. No fever or chills reported. Has minimal productive cough which is not any worse than usual. Denies any known sick contact. Allergies/Adverse Reactions: tetracycline Allergy (Verified 12/08/23 10:48) Home Medications: Triamterene/Hydrochlorothiazid [Triamterene-Hctz 75-50 mg Tab] 1 each PO DAILY 11/12/23 [History] Hx Tetanus, Diphtheria Vaccination/Date Given: No Hx Influenza Vaccination/Date Given: No Hx Pneumococcal Vaccination/Date Given: Yes Immunizations Up to Date: Yes Travel Risk - International Travel Have you traveled outside of the country in past 3 weeks: No - Emerging Infectious Disease Are you exhibiting symptoms associated with any current EIDs: No - Review of Systems Constitutional: Fatigue Eyes: No Symptoms Ears, Nose, & Throat: No Symptoms Respiratory: Cough, Dyspnea, Wheezing Cardiac: Chest Pain Abdominal/Gastrointestinal: No Symptoms Genitourinary Symptoms: No Symptoms Musculoskeletal: Back Pain, Myalgias Skin: No Symptoms Neurological: No Symptoms Endocrine: No Symptoms Hematologic/Lymphatic: No Symptoms - Past Medical History Pertinent Past Medical History: No Neurological History: No Pertinent History ENT History: Other Cardiac History: No Pertinent History Respiratory History: Pneumonia Endocrine Medical History: No Pertinent History Musculoskeletal History: No Pertinent History GI Medical History: No Pertinent History History: No Pertinent History Psycho-Social History: No Pertinent History Female Reproductive Disorders: No Pertinent History Other Medical History: MYNRES DISEASE - Past Surgical History Past Surgical History: Yes Neuro Surgical History: No Pertinent History Cardiac: No Pertinent History Respiratory: No Pertinent History Gastrointestinal: Cholecystectomy Genitourinary: No Pertinent History Musculoskeletal: No Pertinent History Female Surgical History: Hysterectomy Other Surgical History: Total hysterectomy - Social History Smoking Status: Former smoker Exposure to second hand smoke: No Drug Use: none Patient Lives Alone: No - Nursing Vital Signs Nursing Vital Signs: Initial Vital Signs Temperature 97.3 F 12/08/23 10:51 Pulse Rate 90 12/08/23 10:51 Respiratory Rate 30 H 12/08/23 10:51 Blood Pressure 180/98 12/08/23 10:51 O2 Sat by Pulse Oximetry 87 L 12/08/23 10:51 Pain Scale Pain Intensity 7 - Physical Exam General Appearance: no apparent distress, alert Eye Exam: PERRL/EOMI Ears, Nose, Throat Exam: hearing grossly normal, normal ENT inspection, normal pharynx Neck Exam: normal inspection, non-tender, supple, full range of motion Respiratory Exam: diminished breath sounds, rhonchi, wheezing Cardiovascular/Chest Exam: normal heart sounds, regular rate/rhythm Abdominal/Gastrointestinal Exam: soft, normal bowel sounds, No tenderness Extremity Exam: non-tender, normal range of motion Neurologic Exam: alert, oriented x 3, cooperative, telephone solicitor II-XII nml as tested Skin Exam: normal color SpO2 Interpretation: O2 applied SpO2: 95 O2 Delivery: Nasal Cannula - Course EKG Interpreted by Me: RATE (80), Sinus Rhythm, NORMAL AXIS, NORMAL INTERVALS, Q-wave, Non-specific ST Changes Ordered Tests: Active Orders 24 hr Category Date Time Status It Senior Software Engineer Java STAT Care 12/08/23 11:24 Active EKG-ER Only STAT Care 12/08/23 11:23 Active IV Insertion STAT Care 12/08/23 11:23 Active CHEST 1 VIEW (PORTABLE) Stat Exams 12/08/23 11:24 Taken CHEST WITHOUT CONTRAST [CT] Stat Exams 12/08/23 13:22 Completed ARTERIAL BLOOD GASES Stat Lab 12/08/23 11:35 Completed BLOOD CULTURE Stat Lab 12/08/23 11:50 Received CBC W DIFF Stat Lab 12/08/23 11:50 Completed CMP Stat Lab 12/08/23 10:55 Completed Lactic Acid Stat Lab 12/08/23 11:35 Completed MAGNESIUM Stat Lab 12/08/23 10:55 Completed NT PRO BNPII Stat Lab 12/08/23 11:50 Completed TROPONIN Q4H Lab 12/08/23 11:50 Completed TROPONIN Q4H Lab 12/08/23 15:00 Completed TROPONIN Q4H Lab 12/08/23 19:30 Ordered Respiratory Therapy Assessment DAILY RT 12/08/23 11:48 Active Medication Summary Discontinued Medications Generic Name Dose Route Start Last Admin Trade Name Freq PRN Reason Stop Dose Admin Albuterol/Ipratropium 3 ml 12/08/23 11:23 12/08/23 11:31 Ipratropium/Albuterol Sulfate 3 Ml Ampul.Neb IH 12/08/23 11:24 3 ml STAT ONE Administration Albuterol/Ipratropium Confirm 12/08/23 11:30 Ipratropium/Albuterol Sulfate 3 Ml Ampul.Neb Administered 12/08/23 11:31 Dose 3 ml IH .STK-MED ONE Methylprednisolone Sodium 0 mg 12/08/23 11:23 12/08/23 11:38 Succinate 125 mg/ Sterile IV 12/08/23 11:24 125 mg Water 2 ml STAT ONE Administration Ceftriaxone Sodium/Dextrose 2 g in 50 mls @ 100 mls/hr 12/08/23 13:22 14:31 Rocephin 2 Gm-D5w 50ml Bag IV 12/08/23 13:51 Infused STAT STA Infusion Azithromycin 500 mg in 250 mls @ 250 mls/hr 12/08/23 13:22 12/08/23 16:03 Zithromax 500 Mg/ 250 Ml Nacl Premix IV 12/08/23 14:21 Infused STAT STA Infusion Ceftriaxone Sodium/Dextrose Confirm 12/08/23 13:59 Rocephin 2 Gm-D5w 50ml Bag Administered 12/08/23 14:00 Dose 2 g in 50 mls @ ud IV .STK-MED ONE Azithromycin Confirm 12/08/23 14:15 Zithromax 500 Mg/ 250 Ml Nacl Premix Administered 12/08/23 14:16 Dose 500 mg in 250 mls @ ud IV .STK-MED ONE Methylprednisolone Sodium Succinate Confirm 12/08/23 11:38 Methylprednis Sod Succ 125 Mg/2 Ml Vial Administered 12/08/23 11:39 Dose 125 mg .ROUTE .STK-MED ONE Sterile Water Confirm 12/08/23 11:38 Water For Injection,Sterile 10 Ml Vial Administered 12/08/23 11:39 Dose 10 ml IJ .STK-MED ONE Lab/Rad Data: Laboratory Result Diagrams 12/08/23 11:50 12/08/23 10:55 Laboratory Results 12/08/23 12/08/23 12/08/23 Range/Units 15:00 11:50 11:50 WBC (4.0-10.5) x10^3/uL RBC (4.1-5.4) x10^6/uL Hgb (12.0-16.0) g/dL Hct (35-47) % MCV (78-100) fL MCH (26-32) pg MCHC (32-36) g/dL RDW (11.5-14.0) % Plt Count (150-450) x10^3/uL MPV (7.5-11.0) fL Gran % (36.0-66.0) % Immature Gran % (Auto) (0.00-0.4) % Nucleat RBC Rel Count (0.00-0.1) % Eos # (Auto) (0-0.5) x10^3/uL Immature Gran # (Auto) (0.00-0.03) x10^3u/L Absolute Lymphs (auto) (1.0-4.6) x10^3/uL Absolute Monos (auto) (0.0-1.3) x10^3/uL Absolute Nucleated RBC (0.00-0.01) x10^3u/L Lymphocytes % (24.0-44.0) % Monocytes % (0.0-12.0) % Eosinophils % (0.00-5.0) % Basophils % (0.0-0.4) % Absolute Granulocytes (1.4-6.9) x10^3/uL Basophils # (0-0.4) x10^3/uL Puncture Site pCO2 (35-45) mmHg pO2 (75-100) mmHg Base Excess (-2.0-2.0) O2 Saturation (94-100) g/dF ABG pH (7.35-7.45) ABG HCO3 (22-28) ABG O2 Sat (Measured) (95-100) % Elkin Test A-a Gradient a/A Ratio Hemoglobin Carboxyhemoglobin (0.0-6.9) % THgb Methemoglobin (1.4-1.5) % Temperature C POC O2 Flow Rate % Sodium (135-145) mmol/L Potassium (3.5-5.1) mmol/L Chloride (98-107) mmol/L Carbon Dioxide (22-30) mmol/L Anion Gap (5-15) MEQ/L BUN (7-17) mg/dL Creatinine (0.52-1.04) mg/dL Estimated GFR ML/MIN Glucose (74-106) mg/dL Lactic Acid (0.4-2.0) Calcium (8.4-10.2) mg/dL Magnesium (1.6-2.3) mg/dL Total Bilirubin (0.2-1.3) mg/dL AST (14-36) U/L ALT (0-35) U/L Alkaline Phosphatase (38-126) U/L Troponin I < 0.012 (0.000-0.034) ng/mL NT-Pro-B Natriuret Pep 222 (<300) pg/mL Serum Total Protein (6.3-8.2) g/dL Albumin (3.5-5.0) g/dL Influenza Type A Ag NEGATIVE (NEGATIVE) Influenza Type B Ag NEGATIVE (NEGATIVE) RSV (PCR) NEGATIVE (NEGATIVE) SARS-CoV-2 (PCR) NEGATIVE (NEGATIVE) 12/08/23 12/08/23 12/08/23 Range/Units 11:50 11:50 11:35 WBC 10.6 H (4.0-10.5) x10^3/uL RBC 4.83 (4.1-5.4) x10^6/uL Hgb 12.4 (12.0-16.0) g/dL Hct 39.9 (35-47) % MCV 82.6 (78-100) fL MCH 25.7 L (26-32) pg MCHC 31.1 L (32-36) g/dL RDW 15.5 H (11.5-14.0) % Plt Count 535 H (150-450) x10^3/uL MPV 9.9 (7.5-11.0) fL Gran % 79.6 H (36.0-66.0) % Immature Gran % (Auto) 0.4 (0.00-0.4) % Nucleat RBC Rel Count 0.0 (0.00-0.1) % Eos # (Auto) 0.12 (0-0.5) x10^3/uL Immature Gran # (Auto) 0.04 H (0.00-0.03) x10^3u/L Absolute Lymphs (auto) 1.15 (1.0-4.6) x10^3/uL Absolute Monos (auto) 0.80 (0.0-1.3) x10^3/uL Absolute Nucleated RBC 0.00 (0.00-0.01) x10^3u/L Lymphocytes % 10.8 L (24.0-44.0) % Monocytes % 7.5 (0.0-12.0) % Eosinophils % 1.1 (0.00-5.0) % Basophils % 0.6 (0.0-0.4) % Absolute Granulocytes 8.43 H (1.4-6.9) x10^3/uL Basophils # 0.06 (0-0.4) x10^3/uL Puncture Site LEFT BRACHIAL pCO2 25 L (35-45) mmHg pO2 75 (75-100) mmHg Base Excess 2.7 H (-2.0-2.0) O2 Saturation 95.6 (94-100) g/dF ABG pH 7.58 H* (7.35-7.45) ABG HCO3 23.4 (22-28) ABG O2 Sat (Measured) 97.6 (95-100) % Elkin Test na A-a Gradient 93 a/A Ratio 0.45 Hemoglobin 12.7 Carboxyhemoglobin 1.5 (0.0-6.9) % THgb Methemoglobin 0.6 L (1.4-1.5) % Temperature 37.0 C POC O2 Flow Rate 28 % Sodium (135-145) mmol/L Potassium 3.2 L (3.5-5.1) mmol/L Chloride (98-107) mmol/L Carbon Dioxide (22-30) mmol/L Anion Gap (5-15) MEQ/L BUN (7-17) mg/dL Creatinine (0.52-1.04) mg/dL Estimated GFR ML/MIN Glucose (74-106) mg/dL Lactic Acid 1.3 (0.4-2.0) Calcium (8.4-10.2) mg/dL Magnesium (1.6-2.3) mg/dL Total Bilirubin (0.2-1.3) mg/dL AST (14-36) U/L ALT (0-35) U/L Alkaline Phosphatase (38-126) U/L Troponin I < 0.012 (0.000-0.034) ng/mL NT-Pro-B Natriuret Pep (<300) pg/mL Serum Total Protein (6.3-8.2) g/dL Albumin (3.5-5.0) g/dL Influenza Type A Ag (NEGATIVE) Influenza Type B Ag (NEGATIVE) RSV (PCR) (NEGATIVE) SARS-CoV-2 (PCR) (NEGATIVE) 12/08/23 Range/Units 10:55 WBC (4.0-10.5) x10^3/uL RBC (4.1-5.4) x10^6/uL Hgb (12.0-16.0) g/dL Hct (35-47) % MCV (78-100) fL MCH (26-32) pg MCHC (32-36) g/dL RDW (11.5-14.0) % Plt Count (150-450) x10^3/uL MPV (7.5-11.0) fL Gran % (36.0-66.0) % Immature Gran % (Auto) (0.00-0.4) % Nucleat RBC Rel Count (0.00-0.1) % Eos # (Auto) (0-0.5) x10^3/uL Immature Gran # (Auto) (0.00-0.03) x10^3u/L Absolute Lymphs (auto) (1.0-4.6) x10^3/uL Absolute Monos (auto) (0.0-1.3) x10^3/uL Absolute Nucleated RBC (0.00-0.01) x10^3u/L Lymphocytes % (24.0-44.0) % Monocytes % (0.0-12.0) % Eosinophils % (0.00-5.0) % Basophils % (0.0-0.4) % Absolute Granulocytes (1.4-6.9) x10^3/uL Basophils # (0-0.4) x10^3/uL Puncture Site pCO2 (35-45) mmHg pO2 (75-100) mmHg Base Excess (-2.0-2.0) O2 Saturation (94-100) g/dF ABG pH (7.35-7.45) ABG HCO3 (22-28) ABG O2 Sat (Measured) (95-100) % Elkin Test A-a Gradient a/A Ratio Hemoglobin Carboxyhemoglobin (0.0-6.9) % THgb Methemoglobin (1.4-1.5) % Temperature C POC O2 Flow Rate % Sodium 140 (135-145) mmol/L Potassium 3.2 L (3.5-5.1) mmol/L Chloride 103 (98-107) mmol/L Carbon Dioxide 24 (22-30) mmol/L Anion Gap 15.3 H (5-15) MEQ/L BUN 21 H (7-17) mg/dL Creatinine 1.29 H (0.52-1.04) mg/dL Estimated GFR 42.0 ML/MIN Glucose 111 H (74-106) mg/dL Lactic Acid (0.4-2.0) Calcium 10.2 (8.4-10.2) mg/dL Magnesium 1.7 (1.6-2.3) mg/dL Total Bilirubin 0.50 (0.2-1.3) mg/dL AST 27 (14-36) U/L ALT 19 (0-35) U/L Alkaline Phosphatase 107 (38-126) U/L Troponin I (0.000-0.034) ng/mL NT-Pro-B Natriuret Pep (<300) pg/mL Serum Total Protein 8.5 H (6.3-8.2) g/dL Albumin 4.3 (3.5-5.0) g/dL Influenza Type A Ag (NEGATIVE) Influenza Type B Ag (NEGATIVE) RSV (PCR) (NEGATIVE) SARS-CoV-2 (PCR) (NEGATIVE) - Progress Progress: improved, re-examined Air Movement: fair Progress Note: 12/08/23 16:03 78 years old is evaluated for increasing shortness of breath. Patient is recently diagnosed with a lung mass and is in the process of workup for malignancy. She had a PET scan done few days ago at [facility]. Patient was mildly hypoxic on presentation, placed on 5 L Venturi mask, given DuoNeb and Solu-Medrol, on reevaluation she is feeling better. She was switched to 2 L nasal cannula and satting around 94%. Chest x-ray showed mass on the right side with partially collapsed upper and middle lobe. Workup otherwise showed normal white count, CKD with mild worsening of creatinine of 1.29 and GFR of 42. Obtain CT chest without contrast which showed right segmental bronchial mass causing obstruction with collapse of upper and middle lobe with some consolidative changes. Given a dose of antibiotics. Discussed with Dr. Murillo hospitalist, reviewed history, workup, recommended transfer to facility with pulmonary services. I have discussed with Dr. Natasha Glover [facility], reviewed history, workup and current management, excepted patient if okay with pulmonology. I have discussed with pulmonology Dr. Raad Peace who knows this patient very well and agrees with transfer to [facility]. I have obtained records from [facility] where the PET scan shows some malignant mass with mets. I have shared the results of workup with patient and family and plan of transfer which they understand and agree. Blood Culture(s) Obtained: Yes Antibiotics given: Yes Discussed with : Other Counseled pt/family regarding: lab results, diagnosis, need for follow-up, rad results Medical Desision Making - Discussion of managment Care discussed with:: specialist Reviewed:: Test results Agreed on:: Treatment plan, decision to admit (Hospitalist Dr. [id number] and [id number] , Dr. Kaur [facility] ER [address] , [address] Dr. Calli Peace pulmonary ) Will see patient: in hospital - Diagnostic Testing Diagnostic test were ordered, analyzed, and reviewed by me: Yes Radiological Interpretation: Interpreted by me, Reviewed by me, Teleradiologist Report - Risk of complications The pt has a high risk of morbidity or mortality based on: Decision regarding hospitilization or escalation of hosp level of care - Departure Departure Disposition: Transfer Clinical Impression: Pneumonia, Mass of lung parenchyma, Acute renal injury Condition: Fair Critical Care Time: No Referrals: TOOTIE MARLEY DO [Primary Care Provider] - Follow up/PCP as directed
[2023-12-08] MEDS ORDERED: ROCEPHIN 2 Gm-D5w 50ML BAG** 2 G/50 ML IVPB IV ONE (13:59)
[2023-12-08] MEDS: ROCEPHIN 2 Gm-D5w 50ML BAG** 2 G/50 ML IVPB IV STA (14:00)
[2023-12-08] MEDS ORDERED: Zithromax 500 MG/ 250 ML NaCl Premix 500 MG/250 ML IVPB IV ONE (14:15)
[2023-12-08] MEDS: Zithromax 500 MG/ 250 ML NaCl Premix 500 MG/250 ML IVPB IV STA (14:31)
--- NOTE | 2023-12-08 15:03 | XRAY ---
CLINICAL HISTORY: sob TECHNIQUE: Contiguous 3.[address] images of the chest were acquired without administration of intravenous contrast. Coronal and sagittal reconstructions were obtained. COMPARISON: Dated: 11/13/2023. FINDINGS: There is a right hilar mass lesion measuring about 5.7 x 5.1 cm ( TRxAP ) causing complete cut-off of the right upper and middle lobar bronchi, and subsequent collapse of the right upper and middle lung lobes with hyperinflation of the right lower lobe. The mass shows foci of calcification inside. There are innumerable small calcified pulmonary nodules, scattered at both lungs, ranging in size 3-8 mm. No free or encysted pleural effusion. Heart size is normal, and there is no pericardial effusion. Few mediastinal hilar, paraesophageal calcified LNs are noted the largest about 0.6x0.7cm There is no definite mass lesion in the chest wall. Atherosclerotic calcification of the abdominal aorta and coronary vessels Cuts taken through the liver showing left hepatic lobe hypodense focal lesion measuring about 2.4x2.4cm, and pancreatic fatty changes. Minute calcific foci is noted within the liver and spleen. Spondylosis of the thoracic vertebrae. IMPRESSION: 1. Compared to the previous study 11/13/2023 the current study showing marked progression regarding ths size, calcification of the hilar lesion as well as the upper and middle right lung lobe consolidation. 2. Right hilar mass lesion obstructing the upper and middle lobar bronchi and causes collapse of the right upper and middle lung lobes. Further evaluation by biopsy/histopathology is advised to rule out malignancy. 3. Innumeral calcified pulmonary nodules could be old granulomatous infection versus occuptational lung disease. 4. Still noted the left hepatic lobe hypodense lesion. 5. The rest of findings are detailed above. The referring physician's office was called at at 11:41 PM STUDIO [employer]DEL on 12/08/2023 and the results were verbally communicated to Dr Villalobos. Electronically Signed by: Shad Gale MD. (12/08/2023 14:59:37 EDT)
[2023-12-08 17:29] VITALS: BP 131/77; PULSE 89; RESP 23
--- NOTE | 2023-12-08 19:05 | XRAY ---
Indication: Short of breath. Comparison: November 12, 2023 Portable chest demonstrates new right upper and right middle lobe atelectasis with right lung volume loss and right hemidiaphragm elevation. Remaining heart and lungs unremarkable and unchanged again with scattered tiny calcified granulomas.
== END 2023-12-08 17:57 | disposition short-term general hospital (02) ==
LOC: ED 10:44
DX: J18.9 Pneumonia, unspecified organism (principal); R91.8 Other nonspecific abnormal finding of lung field; N17.9 Acute kidney failure, unspecified; R07.9 Chest pain, unspecified; R06.02 Shortness of breath; Z79.899 Other long term (current) drug therapy; Z20.828 Contact with and (suspected) exposure to other viral communicable diseases
CPT/HCPCS: 0241U; 36000; 36415; 36600; 71045; 71250; 80053; 82375; 82803; 83605; 83735; 83880; 84484; 85025; 87040; 93005; 93041; 94640; 96374; 99285; J0456; J0696; J2930; A9270-GY

== ENCOUNTER 2024-03-24 17:11 | Emergency (ER) | payer MEDICARE ==
[2024-03-24 17:31] VITALS: TEMP 100.4
--- NOTE | 2024-03-24 17:55 | ERPHSYRPT ---
- History of Present Illness Time Seen by Provider: 03/24/24 17:30 Source: patient Exam Limitations: no limitations Patient Subjective Stated Complaint: Pt had went to [facility] for blood and platelet infusion and after she left she began having the shakes and having s hortness of breath, pt is a lung cancer pt Triage Nursing Assessment: Pt brought self to the ER, febrile, tachypnic, short of breath, denies pain, pt called her oncologist and they thought she was having a reaction to the platelets and to come to the hospital, pt has never had platelets before, skin petechie in the face, edema to radu legs Physician History: 78-year-old female history of cancer presents to our ED for evaluation of shortness of breath tachypnea. Patient received blood and platelet transfusion just prior to arrival. Patient developed tremors of her extremity. Patient called her oncologist who advised her to come to the ED for an evaluation. Upon evaluation patient had petechiae to her face. Patient states the petechiae has been there for several days. Patient reports that her oncologist advised that the petechiae were secondary to low platelets which is the reason why she was transfused today. Timing/Duration: today Severity: moderate Modifying Factors: Improves With: nothing Associated Symptoms: other (Extremity tremors) Allergies/Adverse Reactions: tetracycline Allergy (Verified 03/24/24 17:31) Home Medications: Triamterene/Hydrochlorothiazid [Triamterene-Hctz 75-50 mg Tab] 1 each PO DAILY 11/12/23 [History] Magnesium Oxide 400 mg [Mag-Ox 400] 400 mg PO DAILY 03/24/24 [History] Ondansetron ODT 4 MG [Zofran Odt 4 mg] 4 mg PO Q6HPRN PRN 03/24/24 [History] Hx Tetanus, Diphtheria Vaccination/Date Given: No Hx Influenza Vaccination/Date Given: No Hx Pneumococcal Vaccination/Date Given: Yes Travel Risk - International Travel Have you traveled outside of the country in past 3 weeks: No - Emerging Infectious Disease Are you exhibiting symptoms associated with any current EIDs: No - Review of Systems Constitutional: No Symptoms Eyes: No Symptoms Ears, Nose, & Throat: No Symptoms Respiratory: No Symptoms Cardiac: No Symptoms Abdominal/Gastrointestinal: No Symptoms Genitourinary Symptoms: No Symptoms Musculoskeletal: No Symptoms Skin: No Symptoms Neurological: No Symptoms Psychological: No Symptoms Endocrine: No Symptoms Hematologic/Lymphatic: No Symptoms Immunological/Allergic: No Symptoms - Past Medical History Pertinent Past Medical History: Yes Neurological History: No Pertinent History ENT History: Other Cardiac History: No Pertinent History Respiratory History: Lung Cancer, Pneumonia Endocrine Medical History: No Pertinent History Musculoskeletal History: No Pertinent History GI Medical History: No Pertinent History History: No Pertinent History Psycho-Social History: No Pertinent History Female Reproductive Disorders: No Pertinent History Other Medical History: MYNRES DISEASE - Past Surgical History Past Surgical History: Yes Neuro Surgical History: No Pertinent History Cardiac: No Pertinent History Respiratory: No Pertinent History Gastrointestinal: Cholecystectomy Genitourinary: No Pertinent History Musculoskeletal: No Pertinent History Female Surgical History: Hysterectomy Other Surgical History: Total hysterectomy - Social History Smoking Status: Former smoker Exposure to second hand smoke: No Drug Use: none Patient Lives Alone: No - Social Determinants of Health Will the patient participate in the screening: Yes Do you worry about a steady place to live?: No Do you have any problems with any of the following?: No known problems In the past 12 months,have you had to go without utilities?: No Transportation Issues: No Has anyone in your support network made you feel unsafe?: No Have you or anyone in your house had to go without enough: No - Nursing Vital Signs Nursing Vital Signs: Initial Vital Signs Temperature 100.4 F 03/24/24 17:12 Pulse Rate 97 H 03/24/24 17:12 Respiratory Rate 27 H 03/24/24 17:12 Blood Pressure 132/68 03/24/24 17:12 O2 Sat by Pulse Oximetry 99 03/24/24 17:12 Pain Scale Pain Intensity 0 - Physical Exam General Appearance: no apparent distress, alert, other (Facial petechiae) Eye Exam: PERRL/EOMI, eyes nml inspection Ears, Nose, Throat Exam: normal ENT inspection, TMs normal, pharynx normal, moist mucous membranes Neck Exam: normal inspection, non-tender, supple, full range of motion Respiratory Exam: normal breath sounds, lungs clear, airway intact, No respiratory distress Cardiovascular Exam: regular rate/rhythm, normal heart sounds, normal peripheral pulses Gastrointestinal/Abdomen Exam: soft, normal bowel sounds, No tenderness, No mass Back Exam: normal inspection, normal range of motion, No CVA tenderness, No vertebral tenderness Extremity Exam: normal inspection, normal range of motion, pelvis stable Neurologic Exam: alert, oriented x 3, cooperative, normal mood/affect, nml cerebellar function, nml station & gait, sensation nml, No motor deficits Skin Exam: normal color, warm, dry, No rash Lymphatic Exam: No adenopathy SpO2 Interpretation: normal SpO2: 99 O2 Delivery: Room Air - Course Nursing assessment & vital signs reviewed: Yes Ordered Tests: Active Orders 24 hr Category Date Time Status AMA [Release AMA] OM.NOW Care 03/24/24 19:12 Completed Veterinary Laboratory Diagnostician STAT Care 03/24/24 17:54 Completed EKG-ER Only STAT Care 03/24/24 17:53 Completed IV Insertion STAT Care 03/24/24 17:53 Completed Pulse Oximetry (ED) STAT Care 03/24/24 17:53 Completed CBC W DIFF Stat Lab 03/24/24 17:30 Completed CMP Stat Lab 03/24/24 17:30 Completed Manual Differential NC Stat Lab 03/24/24 17:30 Completed Pathologist Review Stat Lab 03/24/24 17:30 Completed TROPONIN Q4H Lab 03/24/24 17:30 Completed Medication Summary Discontinued Medications Generic Name Dose Route Start Last Admin Trade Name Freq PRN Reason Stop Dose Admin Heparin Sodium (Beef Lung) 500 units 03/24/24 19:06 03/24/24 19:12 Heparin Lock Flush Pf 500 Units/5 Ml Syringe PORT FLUSH 04/23/24 19:05 500 units PRN PRN Administration IV PORT FLUSH Heparin Sodium (Beef Lung) 500 units 03/24/24 19:10 03/24/24 19:15 Heparin Lock Flush Pf 500 Units/5 Ml Syringe PORT FLUSH 03/24/24 19:11 Not Given ONCE STA Heparin Sodium (Beef Lung) Confirm 03/24/24 19:11 Heparin Lock Flush Pf 500 Units/5 Ml Syringe Administered 03/24/24 19:12 Dose 500 units .ROUTE .[email or web address] Lab/Rad Data: Laboratory Result Diagrams 03/24/24 17:30 03/24/24 17:30 Laboratory Results 03/24/24 03/24/24 03/24/24 Range/Units 17:30 17:30 17:30 WBC 0.5 L* (3.98-10.04) x10^3/uL RBC 3.49 L (3.93-5.22) x10^6/uL Hgb 9.9 L (11.2-15.7) g/dL Hct 30.1 L (34.1-44.9) % MCV 86.2 (79.4-94.8) fL MCH 28.4 (25.6-32.2) pg MCHC 32.9 (32.2-35.5) g/dL RDW 16.8 H (11.7-14.4) % Plt Count 17 L* (182-369) x10^3/uL MPV 9.5 (9.4-12.3) fL Immature Gran % (Auto) 6.3 H (0.001-0.429) % Nucleat RBC Rel Count 12.5 H (0.00-0.2) % Eos # (Auto) 0.01 L (0.04-0.36) x10^3/uL Immature Gran # (Auto) 0.03 (0.001-0.031) x10^3u/L Absolute Lymphs (auto) 0.08 L (1.18-3.74) x10^3/uL Absolute Monos (auto) 0.11 L (0.24-0.86) x10^3/uL Absolute Nucleated RBC 0.06 H (0.00-0.012) x10^3u/L Absolute Granulocytes 0.24 L (1.56-6.13) x10^3/uL Segmented Neutrophils 40 H (1.56-6.13) % Lymphocytes (Manual) 26 (24-44) % Monocytes (Manual) 34 H (0.0-12.0) % Basophils # 0.01 (0.01-0.08) x10^3/uL Platelet Estimate DECREASED (NORMAL) Polychromasia 2+ Anisocytosis 2+ [place] Cells 2+ Rouleaux 1+ Smear Path Review Sodium 135 (135-145) mmol/L Potassium 3.0 L* (3.5-5.1) mmol/L Chloride 102 (98-107) mmol/L Carbon Dioxide 25 (22-30) mmol/L Anion Gap 10.8 (5-15) MEQ/L BUN 20 H (7-17) mg/dL Creatinine 0.89 (0.52-1.04) mg/dL Estimated GFR 65.5 ML/MIN Glucose 108 H (74-106) mg/dL Calcium 9.2 (8.4-10.2) mg/dL Total Bilirubin 0.80 (0.2-1.3) mg/dL AST 39 H (14-36) U/L ALT 21 (0-35) U/L Alkaline Phosphatase 108 (38-126) U/L Troponin I 0.027 (0.000-0.033) ng/mL Serum Total Protein 6.9 (6.3-8.2) g/dL Albumin 3.5 (3.5-5.0) g/dL - Progress Progress: improved Progress Note: Patient left AGAINST MEDICAL ADVICE. Patient states that her shortness of breath and tremors resolved. Patient felt there was no need for further evaluation. We explained to patient of her lab abnormalities. Patient states that her needed to go home and take his night medications. She also stated that they were both hungry and wanted to eat. Patient was offered a meal but stated she wanted to go home instead. Patient declined CTA chest. She also declined management of her hypokalemia leukopenia and thrombocytopenia. Patient left our ED before obtaining her discharge paperwork We we will contact patient's oncologist to inform him that patient left AGAINST MEDICAL ADVICE. Will further inform him of the findings and the importance of follow-up 03/24/24 19:28 03/24/24 19:31 I contacted patient's oncologist Dr Hilario at approximately 8:34 PM. I advised him that patient has some significant abnormalities on her laboratory workup. He is aware and states he will follow-up with patient tomorrow. Patient is of sound mind. Patient is appropriate to make informed and independent medical decisions. Patient understands that leaving AGAINST MEDICAL ADVICE can result in delayed diagnosis, increased risk of morbidity, mortality, short and long-term disability including . In spite of these risks, patient has decided to leave AGAINST MEDICAL ADVICE. Patient understands that she may return to our ED at any point if she reconsiders. Patient agrees to follow-up with her primary care doctor within 48 hours for reevaluation. Patient voices no other complaints or concerns at this time. We will release patient AGAINST MEDICAL ADVICE per their request. Complexity problem addressed is moderate acute complicated. No critical care time. Complex of data reviewed and analyzed is extensive. Test ordered test reviewed results analyzed and correlated clinically with history and physical examination. Management discussed with her oncologist. Risk of complication and or risk of morbidity/mortality patient management is moderate. Patient left AGAINST MEDICAL ADVICE. There is significant laboratory derangements observed. Vital stable time spent to discharge patient approximately 20 minutes. Plan of care established for shared decision making. No social determinants of health present impede follow-up. Portions of this note were created with voice recognition technology. There may be grammatical, spelling, punctuation or sound alike errors 03/24/24 21:00 Will see patient in: other Counseled pt/family regarding: lab results, diagnosis, need for follow-up - Departure Departure Disposition: AMA Clinical Impression: Leukopenia, Thrombocytopenia, Hypokalemia, Shortness of breath, Tremors, Fever Condition: Stable Critical Care Time: No Referrals: TOOTIE MARLEY, [Primary Care Provider] - Follow up/PCP as directed Additional Instructions: Discharge/Care Plan KOSTAS CARTER was seen on 03/24/24 in the Emergency Room. The patient was counseled regarding Diagnosis,Lab results, Imaging studies, need for follow up and when to return to the Emergency Room. Prescriptions given: Discharge Note I have spoken with the patient and/or caregivers. I have explained the patient's condition, diagnosis and treatment plan based on the information available to me at this time. I have answered the patient's and/or caregiver's questions and addressed any concerns. The patient and/or caregivers have as good understanding of the patient's diagnosis, condition and treatment plan as can be expected at this point. The vital signs have been stable. The patient's condition is stable and appropriate for discharge from the emergency department. The patient will pursue further outpatient evaluation with the primary care physician or other designated or consulting physician as outlined in the discharge instructions. The patient and/or caregivers are agreeable to this plan of care and follow-up instructions have been explained in detail. The patient and/or caregivers have received these instruction. The patient/and or caregivers are aware that any significant change in condition or worsening of symptoms should prompt an immediate return to this or the closest emergency department or call 911.
[2024-03-24 17:57] LABS: Absolute Neutrophil Ct (ANC) 0.24 x10^3/uL (1.56-6.13); Basophil (Absolute #) 0.01 x10^3/uL (0.01-0.08); Eosinophil (Absolute #) 0.01 x10^3/uL (0.04-0.36); Hematocrit 30.1 % (34.1-44.9); Hemoglobin 9.9 g/dL (11.2-15.7); IMMATURE GRAN # 0.03 x10^3u/L (0.001-0.031); IMMATURE GRAN % 6.3 % (0.001-0.429); Lymphocyte (Absolute #) 0.08 x10^3/uL (1.18-3.74); Mean Cell Volume 86.2 fL (79.4-94.8); Mean Corpuscular Hemoglobin 28.4 pg (25.6-32.2); Mean Corpuscular Hgb Concent. 32.9 g/dL (32.2-35.5); Mean Platelet Volume 9.5 fL (9.4-12.3); Monocyte (Absolute #) 0.11 x10^3/uL (0.24-0.86); NUCLEATED RBC # 0.06 x10^3u/L (0.00-0.012); NUCLEATED RBC % 12.5 % (0.00-0.2); Red Blood Count 3.49 x10^6/uL (3.93-5.22); Red Cell Distribution Width 16.8 % (11.7-14.4)
[2024-03-24 18:04] LABS: ALBUMIN 3.5 g/dL (3.5-5.0); ANION GAP 10.8 MEQ/L (5-15); BILIRUBIN,TOTAL 0.8 mg/dL (0.2-1.3); Calcium 9.2 mg/dL (8.4-10.2); Creatinine 1 0.89 mg/dL (0.52-1.04); EST GLOMERULAR FILTRATION RATE 65.5 ML/MIN; Total Protein 6.9 g/dL (6.3-8.2)
[2024-03-24 18:09] VITALS: PULSE 90
[2024-03-24 18:59] LABS: Platelet Count 17 x10^3/uL (182-369); White Blood Count 0.5 x10^3/uL (3.98-10.04)
[2024-03-24 19:00] LABS: Platelet Estimate DECREASED (NORMAL); Polychromasia 2+
[2024-03-24 19:01] LABS: ANISOCYTOSIS 2+; Burr Cells 2+; Rouleau 1+
[2024-03-24 19:04] LABS: Neutrophils 40 % (1.56-6.13)
[2024-03-24 19:05] LABS: Lymphocytes 26 % (24-44); Monocyte 34 % (0.0-12.0)
[2024-03-24 19:15] VITALS: O2SAT 99
[2024-03-24 19:29] VITALS: BP 118/68; RESP 15
== END 2024-03-24 19:33 | disposition left against medical advice (07) ==
LOC: ED 17:11
DX: D72.819 Decreased white blood cell count, unspecified (principal); D69.6 Thrombocytopenia, unspecified; E87.6 Hypokalemia; R06.02 Shortness of breath; R25.1 Tremor, unspecified; R50.9 Fever, unspecified; Z79.899 Other long term (current) drug therapy
CPT/HCPCS: 36000; 36415; 80053; 84484; 85025; 93005; 93041; 94760; 99284; J1642

== ENCOUNTER 2024-07-22 15:59 | Inpatient (IN) | payer MEDICARE ==
--- NOTE | 2024-07-22 16:13 | ERPHSYRPT ---
- History of Present Illness Time Seen by Provider: 07/22/24 16:07 Source: patient Exam Limitations: no limitations Physician History: 79yo f presents via private vehicle for sob. Pt reports the sob has been ongoing for approximately 10d, has recently been treated w/ amoxicillin for pna, took last dose yesterday. Pt reports today she has been fatigued and has had trouble catching her breath. Pt reports hx of lung cancer, completed radiation therapy w/in the year. Pt currently denies any cp, n/v/d. Pt does endorse some chills but denies any known fevers. Pt is not currently taking anticoagulation. Pt wears 2L O2 at baseline, currently wearing 4L. Pt has right sided port in place on right chest. Timing/Duration: day(s) (2), worse Activities at Onset: none Severity of Dyspnea-Max: moderate Severity of Dyspnea-Current: moderate Possible Cause: chronic episodes Modifying Factors: Improves With: nothing Associated Symptoms: anxiety, cough, wheezing, weakness, chills, heart racing, No chest pain/discomfort, No edema, No fever, No calf pain, No muscle spasms hands, No painful breathing, No productive cough, No sweating, No tingling face Allergies/Adverse Reactions: tetracycline Allergy (Verified 07/22/24 16:02) Home Medications: Triamterene/Hydrochlorothiazid [Triamterene-Hctz 75-50 mg Tab] 1 each PO DAILY 11/12/23 [History] Magnesium Oxide 400 mg [Mag-Ox 400] 400 mg PO DAILY 03/24/24 [History] Ondansetron ODT 4 MG [Zofran Odt 4 mg] 4 mg PO Q6HPRN PRN 03/24/24 [History] Hx Tetanus, Diphtheria Vaccination/Date Given: No Hx Influenza Vaccination/Date Given: No Hx Pneumococcal Vaccination/Date Given: Yes Travel Risk - Emerging Infectious Disease Are you exhibiting symptoms associated with any current EIDs: No - Review of Systems Constitutional: Chills, Fatigue Respiratory: Cough, Dyspnea, Wheezing, No Stridor Cardiac: No Chest Pain, No Edema, No Palpitations Abdominal/Gastrointestinal: No Symptoms Neurological: No Symptoms Psychological: Anxiety - Past Medical History Pertinent Past Medical History: Yes Neurological History: No Pertinent History ENT History: Other Cardiac History: No Pertinent History Respiratory History: Lung Cancer, Pneumonia Endocrine Medical History: No Pertinent History Musculoskeletal History: No Pertinent History GI Medical History: No Pertinent History History: No Pertinent History Psycho-Social History: No Pertinent History Female Reproductive Disorders: No Pertinent History Other Medical History: MYNRES DISEASE - Past Surgical History Past Surgical History: Yes Neuro Surgical History: No Pertinent History Cardiac: No Pertinent History Respiratory: No Pertinent History Gastrointestinal: Cholecystectomy Genitourinary: No Pertinent History Musculoskeletal: No Pertinent History Female Surgical History: Hysterectomy Other Surgical History: Total hysterectomy - Social History Smoking Status: Former smoker Exposure to second hand smoke: No Drug Use: none Patient Lives Alone: No - Social Determinants of Health Will the patient participate in the screening: Yes Do you worry about a steady place to live?: No In the past 12 months,have you had to go without utilities?: No Transportation Issues: No Has anyone in your support network made you feel unsafe?: No Have you or anyone in your house had to go without enough: No - Nursing Vital Signs Nursing Vital Signs: Initial Vital Signs Pulse Rate 108 H 07/22/24 16:00 Respiratory Rate 35 H 07/22/24 16:00 Blood Pressure 123/88 07/22/24 16:00 O2 Sat by Pulse Oximetry 95 07/22/24 16:00 Pain Scale Pain Intensity 0 - Physical Exam General Appearance: no apparent distress, alert Respiratory Exam: airway intact, diminished breath sounds, crackles/rales (RLL), rhonchi, wheezing (b/l), No chest tenderness, No respiratory distress, No stridor Cardiovascular/Chest Exam: normal heart sounds, regular rate/rhythm, normal peripheral pulses, No murmur Abdominal/Gastrointestinal Exam: soft, normal bowel sounds, No tenderness, No distention Neurologic Exam: alert, oriented x 3, cooperative Skin Exam: normal color SpO2 Interpretation: normal SpO2: 91 O2 Delivery: Oxymask (4L) - Course EKG Interpreted by Me: RATE (113), Sinus Tach, Non-specific ST Changes (minimal lateral lead depressions V1-6), Other (qtcb [id number]) Ordered Tests: Active Orders 24 hr Category Date Time Status EKG-ER Only STAT Care 07/22/24 16:06 Active IV Insertion STAT Care 07/22/24 16:06 Active CHEST WITH CONTRAST [CT] Stat Exams 07/22/24 16:15 Taken ARTERIAL BLOOD GASES Urgent Lab 07/22/24 16:06 Completed BLOOD CULTURE Stat Lab 07/22/24 16:30 Received CBC W DIFF Stat Lab 07/22/24 16:05 Completed CMP Stat Lab 07/22/24 16:05 Completed D-DIMER QUANTITATIVE Stat Lab 07/22/24 16:05 Completed Lactic Acid Stat Lab 07/22/24 16:06 Completed Lactic Acid Stat Lab 07/22/24 17:57 Ordered PROTIME WITH INR Stat Lab 07/22/24 16:05 Completed PTT Stat Lab 07/22/24 16:05 Completed TROPONIN Q4H Lab 07/22/24 16:05 Completed TROPONIN Q4H Lab 07/22/24 20:15 Ordered TROPONIN Q4H Lab 07/23/24 00:15 Ordered UA W/RFX UR CULTURE Stat Lab 07/22/24 17:27 Ordered Respiratory Therapy Assessment DAILY RT 07/22/24 17:39 Active Medication Summary Discontinued Medications Generic Name Dose Route Start Last Admin Trade Name Freq PRN Reason Stop Dose Admin Acetaminophen 650 mg 07/22/24 16:13 07/22/24 16:37 Acetaminophen 325 Mg Tablet PO 07/22/24 16:14 650 mg STAT ONE Administration Acetaminophen Confirm 07/22/24 16:33 Acetaminophen 325 Mg Tablet Administered 07/22/24 16:34 Dose 650 mg .ROUTE .STK-MED ONE Albuterol/Ipratropium 3 ml 07/22/24 16:20 07/22/24 16:43 Ipratropium/Albuterol Sulfate 3 Ml Ampul.Neb IH 07/22/24 16:21 3 ml STAT ONE Administration Albuterol/Ipratropium Confirm 07/22/24 16:36 Ipratropium/Albuterol Sulfate 3 Ml Ampul.Neb Administered 07/22/24 16:37 Dose 3 ml IH .STK-MED ONE Sodium Chloride 1,000 mls @ 999 mls/hr 07/22/24 16:06 07/22/24 17:46 Sodium Chloride 0.9% 1000 Ml IV 07/22/24 17:06 Infused .Q1H1M STA Infusion Sodium Chloride Confirm 07/22/24 16:33 Sodium Chloride 0.9% 1000 Ml Administered 07/22/24 16:34 Dose 1,000 mls @ ud .ROUTE .STK-MED ONE Piperacillin Sod/Tazobactam 100 mls @ 200 mls/hr 07/22/24 17:27 07/22/24 17:34 Sod 3.375 gm/ Sodium Chloride IV 07/22/24 17:56 200 mls/hr STAT ONE Administration Sodium Chloride Confirm 07/22/24 17:32 Sodium Chloride 100ml Mini-Bag Plus Administered 07/22/24 17:33 Dose 100 mls @ ud IV .STK-MED ONE Lorazepam 0.5 mg 07/22/24 16:13 07/22/24 16:37 Lorazepam 2 Mg/1 Ml 2 Mg Vial IV 07/22/24 16:14 0.5 mg STAT ONE Administration Lorazepam Confirm 07/22/24 16:33 Lorazepam 2 Mg/1 Ml 2 Mg Vial Administered 07/22/24 16:34 Dose 2 mg .ROUTE .STK-MED ONE Piperacillin Sod/Tazobactam Sod Confirm 07/22/24 17:32 Piperacillin/Tazobactam Sodium 3.375 Gm Vial Administered 07/22/24 17:33 Dose 3.375 gm IV .STK-MED ONE Lab/Rad Data: Laboratory Result Diagrams 07/22/24 16:05 07/22/24 16:05 Laboratory Results 07/22/24 07/22/24 07/22/24 Range/Units 16:20 16:06 16:06 WBC (3.98-10.04) x10^3/uL RBC (3.93-5.22) x10^6/uL Hgb (11.2-15.7) g/dL Hct (34.1-44.9) % MCV (79.4-94.8) fL MCH (25.6-32.2) pg MCHC (32.2-35.5) g/dL RDW (11.7-14.4) % Plt Count (182-369) x10^3/uL MPV (9.4-12.3) fL Gran % (34.0-71.1) % Immature Gran % (Auto) (0.001-0.429) % Nucleat RBC Rel Count (0.00-0.2) % Eos # (Auto) (0.04-0.36) x10^3/uL Immature Gran # (Auto) (0.001-0.031) x10^3u/L Absolute Lymphs (auto) (1.18-3.74) x10^3/uL Absolute Monos (auto) (0.24-0.86) x10^3/uL Absolute Nucleated RBC (0.00-0.012) x10^3u/L Lymphocytes % (19.3-51.7) % Monocytes % (4.7-12.5) % Eosinophils % (0.7-5.8) % Basophils % (0.1-1.2) % Absolute Granulocytes (1.56-6.13) x10^3/uL Basophils # (0.01-0.08) x10^3/uL PT (9.4-12.5) SECONDS INR (0.8-3.0) APTT (25.1-36.5) SECONDS D-Dimer (0.0-0.50) mg/L Puncture Site rt rad pCO2 30 L (35-45) mmHg pO2 71 L (75-100) mmHg Base Excess 4.9 H (-2.0-2.0) O2 Saturation 93.5 L (94-100) g/dF ABG pH 7.56 H* (7.35-7.45) ABG HCO3 26.9 (22-28) ABG O2 Sat (Measured) 95.7 (95-100) % Elkin Test y A-a Gradient 148 a/A Ratio 0.32 Hemoglobin 10.9 Carboxyhemoglobin 1.7 (0.0-6.9) % THgb Methemoglobin 0.6 L (1.4-1.5) % Temperature 37.0 C POC O2 Flow Rate 36 % Sodium (135-145) mmol/L Potassium 3.8 (3.5-5.1) mmol/L Chloride (98-107) mmol/L Carbon Dioxide (22-30) mmol/L Anion Gap (5-15) MEQ/L BUN (7-17) mg/dL Creatinine (0.52-1.04) mg/dL Estimated GFR ML/MIN Glucose (74-106) mg/dL Lactic Acid 1.5 (0.4-2.0) Calcium (8.4-10.2) mg/dL Total Bilirubin (0.2-1.3) mg/dL AST (14-36) U/L ALT (0-35) U/L Alkaline Phosphatase (38-126) U/L Troponin I (0.000-0.033) ng/mL Serum Total Protein (6.3-8.2) g/dL Albumin (3.5-5.0) g/dL Influenza Type A Ag NEGATIVE (NEGATIVE) Influenza Type B Ag NEGATIVE (NEGATIVE) RSV (PCR) NEGATIVE (NEGATIVE) SARS-CoV-2 (PCR) NEGATIVE (NEGATIVE) Slides for Path Review 07/22/24 07/22/24 07/22/24 Range/Units 16:05 16:05 16:05 WBC (3.98-10.04) x10^3/uL RBC (3.93-5.22) x10^6/uL Hgb (11.2-15.7) g/dL Hct (34.1-44.9) % MCV (79.4-94.8) fL MCH (25.6-32.2) pg MCHC (32.2-35.5) g/dL RDW (11.7-14.4) % Plt Count (182-369) x10^3/uL MPV (9.4-12.3) fL Gran % (34.0-71.1) % Immature Gran % (Auto) (0.001-0.429) % Nucleat RBC Rel Count (0.00-0.2) % Eos # (Auto) (0.04-0.36) x10^3/uL Immature Gran # (Auto) (0.001-0.031) x10^3u/L Absolute Lymphs (auto) (1.18-3.74) x10^3/uL Absolute Monos (auto) (0.24-0.86) x10^3/uL Absolute Nucleated RBC (0.00-0.012) x10^3u/L Lymphocytes % (19.3-51.7) % Monocytes % (4.7-12.5) % Eosinophils % (0.7-5.8) % Basophils % (0.1-1.2) % Absolute Granulocytes (1.56-6.13) x10^3/uL Basophils # (0.01-0.08) x10^3/uL PT 11.8 (9.4-12.5) SECONDS INR 1.09 (0.8-3.0) APTT 37.5 H (25.1-36.5) SECONDS D-Dimer 4.02 H* (0.0-0.50) mg/L Puncture Site pCO2 (35-45) mmHg pO2 (75-100) mmHg Base Excess (-2.0-2.0) O2 Saturation (94-100) g/dF ABG pH (7.35-7.45) ABG HCO3 (22-28) ABG O2 Sat (Measured) (95-100) % Elkin Test A-a Gradient a/A Ratio Hemoglobin Carboxyhemoglobin (0.0-6.9) % THgb Methemoglobin (1.4-1.5) % Temperature C POC O2 Flow Rate % Sodium 135 (135-145) mmol/L Potassium 3.8 (3.5-5.1) mmol/L Chloride 101 (98-107) mmol/L Carbon Dioxide 25 (22-30) mmol/L Anion Gap 12.7 (5-15) MEQ/L BUN 20 H (7-17) mg/dL Creatinine 0.78 (0.52-1.04) mg/dL Estimated GFR 76.3 ML/MIN Glucose 157 H (74-106) mg/dL Lactic Acid (0.4-2.0) Calcium 9.1 (8.4-10.2) mg/dL Total Bilirubin 0.80 (0.2-1.3) mg/dL AST 59 H (14-36) U/L ALT 62 H (0-35) U/L Alkaline Phosphatase 227 H (38-126) U/L Troponin I < 0.012 (0.000-0.033) ng/mL Serum Total Protein 6.4 (6.3-8.2) g/dL Albumin 3.2 L (3.5-5.0) g/dL Influenza Type A Ag (NEGATIVE) Influenza Type B Ag (NEGATIVE) RSV (PCR) (NEGATIVE) SARS-CoV-2 (PCR) (NEGATIVE) Slides for Path Review 07/22/24 Range/Units 16:05 WBC 14.1 H (3.98-10.04) x10^3/uL RBC 3.53 L (3.93-5.22) x10^6/uL Hgb 10.3 L (11.2-15.7) g/dL Hct 32.9 L (34.1-44.9) % MCV 93.2 (79.4-94.8) fL MCH 29.2 (25.6-32.2) pg MCHC 31.3 L (32.2-35.5) g/dL RDW 16.6 H (11.7-14.4) % Plt Count 220 (182-369) x10^3/uL MPV 8.6 L (9.4-12.3) fL Gran % 92.1 H (34.0-71.1) % Immature Gran % (Auto) 0.5 H (0.001-0.429) % Nucleat RBC Rel Count 0.0 (0.00-0.2) % Eos # (Auto) 0.22 (0.04-0.36) x10^3/uL Immature Gran # (Auto) 0.07 H (0.001-0.031) x10^3u/L Absolute Lymphs (auto) 0.19 L (1.18-3.74) x10^3/uL Absolute Monos (auto) 0.62 (0.24-0.86) x10^3/uL Absolute Nucleated RBC 0.00 (0.00-0.012) x10^3u/L Lymphocytes % 1.3 L (19.3-51.7) % Monocytes % 4.4 L (4.7-12.5) % Eosinophils % 1.6 (0.7-5.8) % Basophils % 0.1 (0.1-1.2) % Absolute Granulocytes 13.02 H (1.56-6.13) x10^3/uL Basophils # 0.02 (0.01-0.08) x10^3/uL PT (9.4-12.5) SECONDS INR (0.8-3.0) APTT (25.1-36.5) SECONDS D-Dimer (0.0-0.50) mg/L Puncture Site pCO2 (35-45) mmHg pO2 (75-100) mmHg Base Excess (-2.0-2.0) O2 Saturation (94-100) g/dF ABG pH (7.35-7.45) ABG HCO3 (22-28) ABG O2 Sat (Measured) (95-100) % Elkin Test A-a Gradient a/A Ratio Hemoglobin Carboxyhemoglobin (0.0-6.9) % THgb Methemoglobin (1.4-1.5) % Temperature C POC O2 Flow Rate % Sodium (135-145) mmol/L Potassium (3.5-5.1) mmol/L Chloride (98-107) mmol/L Carbon Dioxide (22-30) mmol/L Anion Gap (5-15) MEQ/L BUN (7-17) mg/dL Creatinine (0.52-1.04) mg/dL Estimated GFR ML/MIN Glucose (74-106) mg/dL Lactic Acid (0.4-2.0) Calcium (8.4-10.2) mg/dL Total Bilirubin (0.2-1.3) mg/dL AST (14-36) U/L ALT (0-35) U/L Alkaline Phosphatase (38-126) U/L Troponin I (0.000-0.033) ng/mL Serum Total Protein (6.3-8.2) g/dL Albumin (3.5-5.0) g/dL Influenza Type A Ag (NEGATIVE) Influenza Type B Ag (NEGATIVE) RSV (PCR) (NEGATIVE) SARS-CoV-2 (PCR) (NEGATIVE) Slides for Path Review YES - Progress Progress: improved Air Movement: fair Progress Note: 07/22/24 18:47 I discussed pt case w/ Dr Tavarez who is willing to accept admission for obs pt tachy on presentation, wbc 14k, given 1L NS bolus lactate < 2 trop negative CTA chest negative for PE, suggestive of significant b/l infiltrates and atelectasis started on IV zosyn lab w/u otherwise largely unremarkable Blood Culture(s) Obtained: Yes Antibiotics given: Yes Will see patient in: hospital (observation) Counseled pt/family regarding: lab results, diagnosis, need for follow-up, rad results Medical Desision Making - Diagnostic Testing Diagnostic test were ordered, analyzed, and reviewed by me: Yes Radiological Interpretation: Reviewed by me, Teleradiologist Report - Risk of complications The pt has a high risk of morbidity or mortality based on: Decision regarding hospitilization or escalation of hosp level of care - Departure Departure Disposition: Observation Clinical Impression: Pneumonia Qualifiers: Pneumonia type: due to unspecified organism Laterality: bilateral Lung location: unspecified part of lung Qualified Code(s): J18.9 - Pneumonia, unspecified organism Condition: Stable Critical Care Time: No Referrals: TOOTIE MARLEY DO [Primary Care Provider] - Follow up/PCP as directed
[2024-07-22 16:16] LABS: Absolute Neutrophil Ct (ANC) 13.02 x10^3/uL (1.56-6.13); BASOPHIL % 0.1 % (0.1-1.2); Basophil (Absolute #) 0.02 x10^3/uL (0.01-0.08); Eosinophil % 1.6 % (0.7-5.8); Eosinophil (Absolute #) 0.22 x10^3/uL (0.04-0.36); Hematocrit 32.9 % (34.1-44.9); Hemoglobin 10.3 g/dL (11.2-15.7); IMMATURE GRAN # 0.07 x10^3u/L (0.001-0.031); IMMATURE GRAN % 0.5 % (0.001-0.429); Lymphocyte (Absolute #) 0.19 x10^3/uL (1.18-3.74); Lymphocytes % 1.3 % (19.3-51.7); Mean Cell Volume 93.2 fL (79.4-94.8); Mean Corpuscular Hemoglobin 29.2 pg (25.6-32.2); Mean Corpuscular Hgb Concent. 31.3 g/dL (32.2-35.5); Mean Platelet Volume 8.6 fL (9.4-12.3); Monocyte (Absolute #) 0.62 x10^3/uL (0.24-0.86); Monocytes % 4.4 % (4.7-12.5); Neutrophil % 92.1 % (34.0-71.1); Platelet Count 220 x10^3/uL (182-369); Red Blood Count 3.53 x10^6/uL (3.93-5.22); Red Cell Distribution Width 16.6 % (11.7-14.4); White Blood Count 14.1 x10^3/uL (3.98-10.04)
[2024-07-22 16:28] LABS: A-aADO2 148; ABG HEMOGLOBIN 10.9; ABG POTASSIUM 3.8 (3.5-5.1); ARTERIAL BLD GAS O2 SATURATION 95.7 % (95-100); ARTERIAL BLOOD GAS BASE EXCESS 4.9 (-2.0-2.0); ARTERIAL BLOOD GAS FIO2 36 %; ARTERIAL BLOOD GAS PCO2 30 mmHg (35-45); ARTERIAL BLOOD GAS PO2 71 mmHg (75-100); CARBOXYHEMOGLOBIN 1.7 % THgb (0.0-6.9); HCO3- 26.9 (22-28); HGB O2 SAT 93.5 g/dF (94-100); Methhemoglobin 0.6 % (1.4-1.5); paO2 pAO1 0.32
[2024-07-22 16:29] LABS: ABG SITE rt rad; ALLEN TEST OK? y; ARTERIAL BLOOD GAS pH 7.56 (7.35-7.45)
[2024-07-22] MEDS ORDERED: TYLENOL 325 MG ONE (16:33)
[2024-07-22] MEDS ORDERED: Sodium Chloride 0.9% 1000 ML 1,000 ML ONE (16:33)
[2024-07-22] MEDS ORDERED: Ativan 2 MG/1 ML VIAL ONE (16:33)
[2024-07-22] MEDS: Sodium Chloride 0.9% 1000 ML 1,000 ML IV STA (16:35)
[2024-07-22] MEDS ORDERED: DUONEB 0.5-3 MG/3 ml Neb IH ONE (16:36)
[2024-07-22] MEDS: Ativan 2 MG/1 ML VIAL IV ONE (16:37)
[2024-07-22] MEDS: TYLENOL 325 MG PO ONE (16:37)
[2024-07-22 16:38] LABS: INR 1.09 (0.8-3.0); PROTIME 11.8 SECONDS (9.4-12.5); PTT 37.5 SECONDS (25.1-36.5)
[2024-07-22 16:39] LABS: ALBUMIN 3.2 g/dL (3.5-5.0); ANION GAP 12.7 MEQ/L (5-15); BILIRUBIN,TOTAL 0.8 mg/dL (0.2-1.3); Calcium 9.1 mg/dL (8.4-10.2); Creatinine 1 0.78 mg/dL (0.52-1.04); D-DIMER QUANTITATIVE 4.02 mg/L (0.0-0.50); EST GLOMERULAR FILTRATION RATE 76.3 ML/MIN; Potassium 3.8 mmol/L (3.5-5.1); Total Protein 6.4 g/dL (6.3-8.2)
[2024-07-22] MEDS: DUONEB 0.5-3 MG/3 ml Neb IH ONE (16:43)
[2024-07-22 17:04] LABS: Slide Review 1 YES
[2024-07-22 17:12] LABS: INFLUENZA A NEGATIVE (NEGATIVE); INFLUENZA B NEGATIVE (NEGATIVE); RESPIRATORY SYNCTIAL VIRUS NEGATIVE (NEGATIVE); SARS-CoV-2 Xpert Express NEGATIVE (NEGATIVE)
[2024-07-22] MEDS ORDERED: Sodium Chloride 100ML MINI-BAG PLUS 100 ML IV ONE ×2 (17:32→22:01)
[2024-07-22] MEDS ORDERED: PIPERACILLIN/TAZOBACTAM IV ONE ×2 (17:32→22:00)
[2024-07-22] MEDS: PIPERACILLIN/TAZOBACTAM 3.375 GM in Sodium Chloride 100ML MINI-BAG PLUS 100 ML IV ONE (17:34)
[2024-07-22] MEDS ORDERED: Xopenex 1.25 MG/0.5 ML UD NEBULE IH PRN (20:04)
[2024-07-22] MEDS ORDERED: Zofran 4 MG/2 ML VIAL IV PRN ×2 (20:05→21:36)
[2024-07-22] MEDS ORDERED: TYLENOL 325 MG PO PRN (20:05)
[2024-07-22] MEDS ORDERED: Docusate Sodium 100 MG PO PRN (20:05)
--- NOTE | 2024-07-22 20:48 | PCM.HP ---
History of Present Illness - Chief Complaint Chief Complaint: pneumonia Date: 07/22/24 History of Present Illness: is a 79 year old female with a history of lung cancer (completed radiation therapy within this past year, and has a port in place), chronic hypo xic respiratory failure (on 2LPM at baseline), and hypertension who presented to ED with dyspnea for the past 10 days. She had recently been treated with amoxicillin for a pneumonia, and completed the course on the day prior to admission. Despite this treatment, the patient has felt weak and had shortness of breath. She does not report hemoptysis, chest pain, fevers, chills, nausea or vomiting. Imaging in the ED demonstrated no evidence of PE, but persistent infiltrate and atelectasis. - Review of Systems Constitutional: Fatigue Eyes: No Symptoms Ears, Nose, & Throat: No Symptoms Respiratory: Short Of Breath Cardiac: No Symptoms Abdominal/Gastrointestinal: No Symptoms Genitourinary Symptoms: No Symptoms Musculoskeletal: No Symptoms Skin: No Symptoms Neurological: No Symptoms Psychological: No Symptoms Endocrine: No Symptoms Hematologic/Lymphatic: No Symptoms Immunological/Allergic: No Symptoms All Other Systems: Reviewed and Negative Medications & Allergies Home Medications: Home Medication List Triamterene/Hydrochlorothiazid [Triamterene-Hctz 75-50 mg Tab] 1 each PO DAILY 11/12/23 [History Confirmed 07/22/24] Albuterol 8 gm Mdi Hfa [Ventolin Hfa MDI] 18 gm IH Q4-6HPRN PRN 30 Days #1 inhaler 11/13/23 [Rx Confirmed 07/22/24] Potassium Chloride Tab* [Klor Con] 20 meq PO BID 3 Days #12 tablet 11/13/23 [Rx Confirmed 07/22/24] Magnesium Oxide 400 mg [Mag-Ox 400] 400 mg PO DAILY 03/24/24 [History Confirmed 07/22/24] Ondansetron ODT 4 MG [Zofran Odt 4 mg] 4 mg PO Q6HPRN PRN 03/24/24 [History Confirmed 07/22/24] Mirtazapine 15 mg PO HS 07/22/24 [History Confirmed 07/22/24] Prednisone 10 mg [Deltasone 10 mg] 10 tab PO DAILY 07/22/24 [History Confirmed 07/22/24] Prochlorperazine Maleate 5 mg* [Compazine 5 MG] 10 mg PO BID 07/22/24 [History Confirmed 07/22/24] Allergies/Adverse Reactions: Allergies Allergy/AdvReac Type Severity Reaction Status Date / Time tetracycline Allergy Verified 07/22/24 16:02 - Past Medical History Past Medical History: Yes Neurological History: No Pertinent History ENT History: Other Cardiac History: No Pertinent History Respiratory History: Lung Cancer, Pneumonia Endocrine Medical History: No Pertinent History Musculoskelatal History: No Pertinent History GI Medical History: No Pertinent History History: No Pertinent History Pyscho-Social History: No Pertinent History Reproductive Disorders: No Pertinent History Comment: MYNRES DISEASE - Past Surgical History Past Surgical History: Yes Neuro Surgical History: No Pertinent History Cardiac History: No Pertinent History Respiratory Surgery: No Pertinent History GI Surgical History: Cholecystectomy Genitourinary Surgical Hx: No Pertinent History Musculskeletal Surgical Hx: No Pertinent History Female Surgical History: Hysterectomy Other Surgical History: Total hysterectomy Family History: No family history of heriditary pulmonary disorder is noted on review or reported. - Social History Smoking Status: Former smoker Exposure to second hand smoke: No Alcohol: None Drug Use: none - Social Determinants of Health Will the patient participate in the screening: Yes Do you worry about a steady place to live?: No Do you have any problems with any of the following?: No known problems In the past 12 months,have you had to go without utilities?: No Have you or anyone in your house had to go without enough: No Transportation Issues: No Has anyone in your support network made you feel unsafe?: No Does the patient want assistance with any of the above?: No - Physical Exam Vital Signs: Vital Signs - 24 hr Temp Pulse Resp BP BP Pulse Ox 07/22/24 19:00 98.5 F 95 H 23 100/57 94 L 07/22/24 18:52 91 L 07/22/24 18:30 89 36 H 112/58 97 07/22/24 18:00 99 H 23 102/47 97 07/22/24 17:40 105 H 40 H 98 07/22/24 17:30 96 H 35 H 137/46 98 07/22/24 17:23 106 H 46 H 124/56 94 L 07/22/24 17:00 104 H 31 H 108/54 96 07/22/24 16:31 106 H 30 H 104/60 99 07/22/24 16:02 103.2 F 115 H 30 H 123/88 95 07/22/24 16:00 108 H 35 H 123/88 95 General Appearance: no apparent distress, alert Neurologic Exam: alert, oriented x 3, cooperative, gis specialist II-XII nml as tested, normal mood/affect, nml cerebellar function Eye Exam: PERRL/EOMI, eyes nml inspection Ears, Nose, Throat Exam: normal ENT inspection Neck Exam: normal inspection, non-tender, supple, full range of motion Respiratory Exam: diminished breath sounds Cardiovascular Exam: regular rate/rhythm, normal heart sounds Gastrointestinal/Abdomen Exam: soft, normal bowel sounds Back Exam: normal range of motion Extremity Exam: normal inspection, normal range of motion Skin Exam: normal color Results - Labs Lab/Micro Results: Lab Results-Last 24 Hours 07/22/24 07/22/24 07/22/24 Range/Units 16:05 16:05 16:05 WBC 14.1 H (3.98-10.04) x10^3/uL RBC 3.53 L (3.93-5.22) x10^6/uL Hgb 10.3 L (11.2-15.7) g/dL Hct 32.9 L (34.1-44.9) % MCV 93.2 (79.4-94.8) fL MCH 29.2 (25.6-32.2) pg MCHC 31.3 L (32.2-35.5) g/dL RDW 16.6 H (11.7-14.4) % Plt Count 220 (182-369) x10^3/uL MPV 8.6 L (9.4-12.3) fL Gran % 92.1 H (34.0-71.1) % Immature Gran % (Auto) 0.5 H (0.001-0.429) % Nucleat RBC Rel Count 0.0 (0.00-0.2) % Eos # (Auto) 0.22 (0.04-0.36) x10^3/uL Immature Gran # (Auto) 0.07 H (0.001-0.031) x10^3u/L Absolute Lymphs (auto) 0.19 L (1.18-3.74) x10^3/uL Absolute Monos (auto) 0.62 (0.24-0.86) x10^3/uL Absolute Nucleated RBC 0.00 (0.00-0.012) x10^3u/L Lymphocytes % 1.3 L (19.3-51.7) % Monocytes % 4.4 L (4.7-12.5) % Eosinophils % 1.6 (0.7-5.8) % Basophils % 0.1 (0.1-1.2) % Absolute Granulocytes 13.02 H (1.56-6.13) x10^3/uL Basophils # 0.02 (0.01-0.08) x10^3/uL PT 11.8 (9.4-12.5) SECONDS INR 1.09 (0.8-3.0) APTT 37.5 H (25.1-36.5) SECONDS D-Dimer 4.02 H* (0.0-0.50) mg/L Puncture Site pCO2 (35-45) mmHg pO2 (75-100) mmHg Base Excess (-2.0-2.0) O2 Saturation (94-100) g/dF ABG pH (7.35-7.45) ABG HCO3 (22-28) ABG O2 Sat (Measured) (95-100) % Elkin Test A-a Gradient a/A Ratio Hemoglobin Carboxyhemoglobin (0.0-6.9) % THgb Methemoglobin (1.4-1.5) % Temperature C POC O2 Flow Rate % Sodium 135 (135-145) mmol/L Potassium 3.8 (3.5-5.1) mmol/L Chloride 101 (98-107) mmol/L Carbon Dioxide 25 (22-30) mmol/L Anion Gap 12.7 (5-15) MEQ/L BUN 20 H (7-17) mg/dL Creatinine 0.78 (0.52-1.04) mg/dL Estimated GFR 76.3 ML/MIN Glucose 157 H (74-106) mg/dL Lactic Acid (0.4-2.0) Calcium 9.1 (8.4-10.2) mg/dL Total Bilirubin 0.80 (0.2-1.3) mg/dL AST 59 H (14-36) U/L ALT 62 H (0-35) U/L Alkaline Phosphatase 227 H (38-126) U/L Troponin I (0.000-0.033) ng/mL Serum Total Protein 6.4 (6.3-8.2) g/dL Albumin 3.2 L (3.5-5.0) g/dL Influenza Type A Ag (NEGATIVE) Influenza Type B Ag (NEGATIVE) RSV (PCR) (NEGATIVE) SARS-CoV-2 (PCR) (NEGATIVE) Slides for Path Review YES 07/22/24 07/22/24 07/22/24 Range/Units 16:05 16:06 16:06 WBC (3.98-10.04) x10^3/uL RBC (3.93-5.22) x10^6/uL Hgb (11.2-15.7) g/dL Hct (34.1-44.9) % MCV (79.4-94.8) fL MCH (25.6-32.2) pg MCHC (32.2-35.5) g/dL RDW (11.7-14.4) % Plt Count (182-369) x10^3/uL MPV (9.4-12.3) fL Gran % (34.0-71.1) % Immature Gran % (Auto) (0.001-0.429) % Nucleat RBC Rel Count (0.00-0.2) % Eos # (Auto) (0.04-0.36) x10^3/uL Immature Gran # (Auto) (0.001-0.031) x10^3u/L Absolute Lymphs (auto) (1.18-3.74) x10^3/uL Absolute Monos (auto) (0.24-0.86) x10^3/uL Absolute Nucleated RBC (0.00-0.012) x10^3u/L Lymphocytes % (19.3-51.7) % Monocytes % (4.7-12.5) % Eosinophils % (0.7-5.8) % Basophils % (0.1-1.2) % Absolute Granulocytes (1.56-6.13) x10^3/uL Basophils # (0.01-0.08) x10^3/uL PT (9.4-12.5) SECONDS INR (0.8-3.0) APTT (25.1-36.5) SECONDS D-Dimer (0.0-0.50) mg/L Puncture Site rt rad pCO2 30 L (35-45) mmHg pO2 71 L (75-100) mmHg Base Excess 4.9 H (-2.0-2.0) O2 Saturation 93.5 L (94-100) g/dF ABG pH 7.56 H* (7.35-7.45) ABG HCO3 26.9 (22-28) ABG O2 Sat (Measured) 95.7 (95-100) % Elkin Test y A-a Gradient 148 a/A Ratio 0.32 Hemoglobin 10.9 Carboxyhemoglobin 1.7 (0.0-6.9) % THgb Methemoglobin 0.6 L (1.4-1.5) % Temperature 37.0 C POC O2 Flow Rate 36 % Sodium (135-145) mmol/L Potassium 3.8 (3.5-5.1) mmol/L Chloride (98-107) mmol/L Carbon Dioxide (22-30) mmol/L Anion Gap (5-15) MEQ/L BUN (7-17) mg/dL Creatinine (0.52-1.04) mg/dL Estimated GFR ML/MIN Glucose (74-106) mg/dL Lactic Acid 1.5 (0.4-2.0) Calcium (8.4-10.2) mg/dL Total Bilirubin (0.2-1.3) mg/dL AST (14-36) U/L ALT (0-35) U/L Alkaline Phosphatase (38-126) U/L Troponin I < 0.012 (0.000-0.033) ng/mL Serum Total Protein (6.3-8.2) g/dL Albumin (3.5-5.0) g/dL Influenza Type A Ag (NEGATIVE) Influenza Type B Ag (NEGATIVE) RSV (PCR) (NEGATIVE) SARS-CoV-2 (PCR) (NEGATIVE) Slides for Path Review 07/22/24 Range/Units 16:20 WBC (3.98-10.04) x10^3/uL RBC (3.93-5.22) x10^6/uL Hgb (11.2-15.7) g/dL Hct (34.1-44.9) % MCV (79.4-94.8) fL MCH (25.6-32.2) pg MCHC (32.2-35.5) g/dL RDW (11.7-14.4) % Plt Count (182-369) x10^3/uL MPV (9.4-12.3) fL Gran % (34.0-71.1) % Immature Gran % (Auto) (0.001-0.429) % Nucleat RBC Rel Count (0.00-0.2) % Eos # (Auto) (0.04-0.36) x10^3/uL Immature Gran # (Auto) (0.001-0.031) x10^3u/L Absolute Lymphs (auto) (1.18-3.74) x10^3/uL Absolute Monos (auto) (0.24-0.86) x10^3/uL Absolute Nucleated RBC (0.00-0.012) x10^3u/L Lymphocytes % (19.3-51.7) % Monocytes % (4.7-12.5) % Eosinophils % (0.7-5.8) % Basophils % (0.1-1.2) % Absolute Granulocytes (1.56-6.13) x10^3/uL Basophils # (0.01-0.08) x10^3/uL PT (9.4-12.5) SECONDS INR (0.8-3.0) APTT (25.1-36.5) SECONDS D-Dimer (0.0-0.50) mg/L Puncture Site pCO2 (35-45) mmHg pO2 (75-100) mmHg Base Excess (-2.0-2.0) O2 Saturation (94-100) g/dF ABG pH (7.35-7.45) ABG HCO3 (22-28) ABG O2 Sat (Measured) (95-100) % Elkin Test A-a Gradient a/A Ratio Hemoglobin Carboxyhemoglobin (0.0-6.9) % THgb Methemoglobin (1.4-1.5) % Temperature C POC O2 Flow Rate % Sodium (135-145) mmol/L Potassium (3.5-5.1) mmol/L Chloride (98-107) mmol/L Carbon Dioxide (22-30) mmol/L Anion Gap (5-15) MEQ/L BUN (7-17) mg/dL Creatinine (0.52-1.04) mg/dL Estimated GFR ML/MIN Glucose (74-106) mg/dL Lactic Acid (0.4-2.0) Calcium (8.4-10.2) mg/dL Total Bilirubin (0.2-1.3) mg/dL AST (14-36) U/L ALT (0-35) U/L Alkaline Phosphatase (38-126) U/L Troponin I (0.000-0.033) ng/mL Serum Total Protein (6.3-8.2) g/dL Albumin (3.5-5.0) g/dL Influenza Type A Ag NEGATIVE (NEGATIVE) Influenza Type B Ag NEGATIVE (NEGATIVE) RSV (PCR) NEGATIVE (NEGATIVE) SARS-CoV-2 (PCR) NEGATIVE (NEGATIVE) Slides for Path Review - Radiology Impressions Radiology Exams & Impressions: Radiology Procedures Category Date Time Status CHEST WITH CONTRAST [CT] Stat Exams 07/22/24 16:15 Taken Assessment/Plan (1) Pneumonia Current Visit: Yes Status: Acute Qualifiers: Pneumonia type: due to unspecified organism Laterality: bilateral Lung location: unspecified part of lung Qualified Code(s): J18.9 - Pneumonia, unspecified organism Assessment & Plan: Patient has persistent symptoms despite treatment with amoxicillin. Placed on IV Zosyn. Monitor clinical course. Code(s): J18.9 - PNEUMONIA, UNSPECIFIED ORGANISM (2) Acute respiratory failure with hypoxia Current Visit: Yes Status: Acute Assessment & Plan: Antibiotics. Nebulizers. No wheezing on auscultation. Wean O2 to 2LPM baseline as tolerated. Incentive spirometry for atelectasis. PT for mobilization. Code(s): J96.01 - ACUTE RESPIRATORY FAILURE WITH HYPOXIA (3) Leukocytosis Current Visit: Yes Status: Acute Assessment & Plan: Antibiotics. Follow trend. Code(s): D72.829 - ELEVATED WHITE BLOOD CELL COUNT, UNSPECIFIED (4) Shortness of breath Current Visit: No Status: Acute Assessment & Plan: Pulmonary regimen as noted above. Code(s): R06.02 - SHORTNESS OF BREATH Telemedicine Encounter - Telemedicine Encounter Telemedicine Encounter: "The entirety of this encounter was performed via Telemedicine" This visit was performed using real-time audio and video connection between my location and thepatients locationwith the assistance of a surrogateat the patients location. Written or verbal consent was obtained from the patient/guardian to perform this visit usingsynchronoustelemedicine technology. Any patient questions regarding the telemedicine interaction were answered.
[2024-07-22] MEDS ORDERED: REMERON 30 MG ONE (21:59)
[2024-07-22] MEDS ORDERED: Klor Con PO SCH (22:00)
[2024-07-22] MEDS: MIRTAZAPINE PO SCH (22:05)
[2024-07-22] MEDS: Klor Con PO SCH (22:05)
[2024-07-22] MEDS: Docusate Sodium 100 MG PO SCH (22:09)
[2024-07-22 23:44] LABS: Appearance Clear (Clear); Bacteria None Seen /HPF (None Seen); Bilirubin Negative (Negative); Blood Negative (Negative); Epithelial Cells None Seen /HPF (None Seen); Glucose, Urine Negative (Negative); Hyaline Casts NONE SEEN /LPF (0-2); Ketones Negative (Negative); Leukocyte Esterase Trace (Negative); Nitrite Negative (Negative); Ph 7.5 (4.6-8.0); Protein,Urine Dip Negative (Negative); RBC 0-2 /HPF (0-5); Urobilinogen 0.2 mg/dL (0.2); WBC 0-2 /HPF (0-5)
[2024-07-23] MEDS ORDERED: PIPERACILLIN/TAZOBACTAM 3.375 GM in Sodium Chloride 100ML MINI-BAG PLUS 100 ML IV SCH
[2024-07-23] MEDS: PIPERACILLIN/TAZOBACTAM 3.375 GM in Sodium Chloride 100ML MINI-BAG PLUS 100 ML IV SCH (00:21)
[2024-07-23 02:25] LABS: Absolute Neutrophil Ct (ANC) 10.62 x10^3/uL (1.56-6.13); BASOPHIL % 0.2 % (0.1-1.2); Basophil (Absolute #) 0.02 x10^3/uL (0.01-0.08); Eosinophil % 0.6 % (0.7-5.8); Eosinophil (Absolute #) 0.07 x10^3/uL (0.04-0.36); Hematocrit 31.3 % (34.1-44.9); Hemoglobin 9.6 g/dL (11.2-15.7); IMMATURE GRAN # 0.06 x10^3u/L (0.001-0.031); IMMATURE GRAN % 0.5 % (0.001-0.429); Lymphocyte (Absolute #) 0.21 x10^3/uL (1.18-3.74); Lymphocytes % 1.8 % (19.3-51.7); Mean Corpuscular Hemoglobin 28.8 pg (25.6-32.2); Mean Corpuscular Hgb Concent. 30.7 g/dL (32.2-35.5); Mean Platelet Volume 8.9 fL (9.4-12.3); Monocyte (Absolute #) 0.55 x10^3/uL (0.24-0.86); Monocytes % 4.8 % (4.7-12.5); Neutrophil % 92.1 % (34.0-71.1); Platelet Count 211 x10^3/uL (182-369); Red Blood Count 3.33 x10^6/uL (3.93-5.22); Red Cell Distribution Width 16.7 % (11.7-14.4); White Blood Count 11.5 x10^3/uL (3.98-10.04)
[2024-07-23 02:52] LABS: ANION GAP 12.6 MEQ/L (5-15); BILIRUBIN,TOTAL 0.8 mg/dL (0.2-1.3); Calcium 9.5 mg/dL (8.4-10.2); Creatinine 1 0.83 mg/dL (0.52-1.04); EST GLOMERULAR FILTRATION RATE 70.8 ML/MIN; Potassium 4.5 mmol/L (3.5-5.1); Total Protein 6.1 g/dL (6.3-8.2)
[2024-07-23 04:02] LABS: Slide Review 1 YES
[2024-07-23] MEDS ORDERED: Sodium Chloride 100ML MINI-BAG PLUS 100 ML IV ONE (06:19)
[2024-07-23] MEDS ORDERED: PIPERACILLIN/TAZOBACTAM IV ONE (06:19)
--- NOTE | 2024-07-23 08:47 | XRAY ---
Indication: Hypoxia. Tachycardia. Recent pneumonia. History lung cancer. Elevated d-dimer. Multiple contiguous axial images obtained through the chest using 80 cc Isovue 370 contrast and PE protocol. Comparison: CT chest without contrast December 08, 2023. Good opacification pulmonary arteries to includes the lobar and segmental branches. No pulmonary embolus. Heart is borderline enlarged. Aorta again mildly arteriosclerotic without aneurysm/dissection. New right Port-A-Cath. Stable tiny/small mediastinal and bilateral hilar calcified nodes. No pathologic mediastinal/hilar lymphadenopathy. Lungs demonstrates new extensive right mid to lower lung consolidation either organizing consolidating airspace disease versus atelectasis. Also new patchy left lung groundglass airspace disease. New small right effusion presumed reactive. Bony thorax intact again with osteopenia and mild degenerative changes throughout spine. Limited upper abdomen again demonstrates fatty liver with left lobe cyst, tiny hepatic/splenic calcific granulomas, colonic diverticulosis, and incompletely visualized 1 cm left mid renal cortical cyst. Impression: 1. Negative pulmonary embolus. 2. New right mid to lower lung consolidating opacities either organizing consolidating airspace disease versus atelectasis. Also new diffuse patchy left lung ground glass airspace disease and small right effusion. 3. Again chronic findings including arteriosclerotic disease, chronic bony findings, fatty liver with cyst, colonic diverticulosis, left renal cyst, and old granulomatous disease.
[2024-07-23] MEDS ORDERED: Acidophilus TABLET PO SCH (10:00)
[2024-07-23] MEDS ORDERED: ENOXAPARIN SODIUM SQ SCH (10:00)
[2024-07-23] MEDS ORDERED: DELTASONE 10 MG PO SCH (10:00)
[2024-07-23] MEDS ORDERED: MAG-OX 400 PO SCH (10:00)
[2024-07-23] MEDS: MAG-OX 400 PO SCH (10:18)
[2024-07-23] MEDS: ENOXAPARIN SODIUM SQ SCH (10:18)
[2024-07-23] MEDS: Acidophilus TABLET PO SCH (10:18)
[2024-07-23] MEDS: Maxzide-25MG Tablet PO SCH (10:18)
[2024-07-23] MEDS: DELTASONE 10 MG PO SCH (10:18)
--- NOTE | 2024-07-23 10:53 | PCM.NOTE ---
Date and Time: 07/23/24 1052 Subjective Assessment: is a 79 year old female with a history of lung cancer (completed radiation therapy within this past year, and has a port in place), chronic hypoxic respiratory failure (on 2LPM at baseline), and hypertension. She presented to ED with dyspnea for the past 10 days. She had recently been treated with amoxicillin for a pneumonia, and completed the course on the day prior to admission. Despite this treatment, the patient has felt weak and had shortness of breath. She does not report hemoptysis, chest pain, fevers, chills, nausea or vomiting. Imaging in the ED demonstrated no evidence of PE, but persistent infiltrate and atelectasis. She also hasa right small pleural effusion. She has severe activity intolerance and O2 drops into he 70's when up and walking. She may need rehab at d/c. Lasix IV added today as she has crackles in lung bases. Echo ordered. She denies CP, Abd. pain,N/V/D. - Review of Systems Constitutional: No Fever, No Chills Eyes: No Symptoms Ears, Nose, & Throat: No Symptoms Respiratory: Short Of Breath, No Cough Cardiac: No Chest Pain, No Edema, No Syncope Abdominal/Gastrointestinal: No Abdominal Pain, No Nausea, No Vomiting, No Diarrhea Genitourinary Symptoms: No Dysuria Musculoskeletal: No Back Pain, No Neck Pain Skin: No Rash Neurological: No Dizziness, No Focal Weakness, No Sensory Changes Psychological: No Symptoms Endocrine: No Symptoms Hematologic/Lymphatic: No Symptoms Immunological/Allergic: No Symptoms Objective Exam General Appearance: no apparent distress, alert Neurologic Exam: alert, oriented x 3, cooperative, normal mood/affect, nml cerebellar function, sensation nml, No motor deficits Skin Exam: normal color, warm, dry Eye Exam: PERRL, EOMI, eyes nml inspection Ears, Nose, Throat Exam: normal ENT inspection, pharynx normal, moist mucous membranes Neck Exam: normal inspection, non-tender, supple, full range of motion Respiratory Exam: crackles/rales (RLL), No respiratory distress Cardiovascular Exam: regular rate/rhythm, normal heart sounds Gastrointestinal/Abdomen Exam: soft, No tenderness, No mass Extremity Exam: normal inspection, normal range of motion Back Exam: normal inspection, normal range of motion, No CVA tenderness, No vertebral tenderness Pelvic Exam: deferred Rectal Exam: deferred Objective Data Vital Signs: Vital Signs - 24 hr Temp Pulse Resp BP BP Pulse Ox 07/23/24 07:36 98.4 F 104 H 18 142/63 90 L 07/23/24 07:07 99 H 24 96 07/23/24 04:00 97.6 F 114 H 26 H 142/88 96 07/22/24 23:59 97.5 F 91 H 30 H 113/58 95 07/22/24 22:12 84 26 H 95 07/22/24 20:29 97.3 F 85 23 115/70 95 07/22/24 19:00 98.5 F 95 H 23 100/57 94 L 07/22/24 18:52 91 L 07/22/24 18:30 89 36 H 112/58 97 07/22/24 18:00 99 H 23 102/47 97 07/22/24 17:40 105 H 40 H 98 07/22/24 17:30 96 H 35 H 137/46 98 07/22/24 17:23 106 H 46 H 124/56 94 L 07/22/24 17:00 104 H 31 H 108/54 96 07/22/24 16:31 106 H 30 H 104/60 99 07/22/24 16:02 103.2 F 115 H 30 H 123/88 95 07/22/24 16:00 108 H 35 H 123/88 95 Pain Assessment - Last Documented Pain Intensity 0 Intake and Output: Intake & Output 07/20/24 07/21/24 07/22/24 07/23/24 11:59 11:59 11:59 11:59 Weight 71.1 kg Lab Results: Lab Results-Last 24 Hours 07/22/24 07/22/24 07/22/24 Range/Units 16:05 16:05 16:05 WBC 14.1 H (3.98-10.04) x10^3/uL RBC 3.53 L (3.93-5.22) x10^6/uL Hgb 10.3 L (11.2-15.7) g/dL Hct 32.9 L (34.1-44.9) % MCV 93.2 (79.4-94.8) fL MCH 29.2 (25.6-32.2) pg MCHC 31.3 L (32.2-35.5) g/dL RDW 16.6 H (11.7-14.4) % Plt Count 220 (182-369) x10^3/uL MPV 8.6 L (9.4-12.3) fL Gran % 92.1 H (34.0-71.1) % Immature Gran % (Auto) 0.5 H (0.001-0.429) % Nucleat RBC Rel Count 0.0 (0.00-0.2) % Eos # (Auto) 0.22 (0.04-0.36) x10^3/uL Immature Gran # (Auto) 0.07 H (0.001-0.031) x10^3u/L Absolute Lymphs (auto) 0.19 L (1.18-3.74) x10^3/uL Absolute Monos (auto) 0.62 (0.24-0.86) x10^3/uL Absolute Nucleated RBC 0.00 (0.00-0.012) x10^3u/L Lymphocytes % 1.3 L (19.3-51.7) % Monocytes % 4.4 L (4.7-12.5) % Eosinophils % 1.6 (0.7-5.8) % Basophils % 0.1 (0.1-1.2) % Absolute Granulocytes 13.02 H (1.56-6.13) x10^3/uL Basophils # 0.02 (0.01-0.08) x10^3/uL PT 11.8 (9.4-12.5) SECONDS INR 1.09 (0.8-3.0) APTT 37.5 H (25.1-36.5) SECONDS D-Dimer 4.02 H* (0.0-0.50) mg/L Puncture Site pCO2 (35-45) mmHg pO2 (75-100) mmHg Base Excess (-2.0-2.0) O2 Saturation (94-100) g/dF ABG pH (7.35-7.45) ABG HCO3 (22-28) ABG O2 Sat (Measured) (95-100) % Elkin Test A-a Gradient a/A Ratio Hemoglobin Carboxyhemoglobin (0.0-6.9) % THgb Methemoglobin (1.4-1.5) % Temperature C POC O2 Flow Rate % Sodium 135 (135-145) mmol/L Potassium 3.8 (3.5-5.1) mmol/L Chloride 101 (98-107) mmol/L Carbon Dioxide 25 (22-30) mmol/L Anion Gap 12.7 (5-15) MEQ/L BUN 20 H (7-17) mg/dL Creatinine 0.78 (0.52-1.04) mg/dL Estimated GFR 76.3 ML/MIN Glucose 157 H (74-106) mg/dL Lactic Acid (0.4-2.0) Calcium 9.1 (8.4-10.2) mg/dL Total Bilirubin 0.80 (0.2-1.3) mg/dL AST 59 H (14-36) U/L ALT 62 H (0-35) U/L Alkaline Phosphatase 227 H (38-126) U/L Troponin I (0.000-0.033) ng/mL Serum Total Protein 6.4 (6.3-8.2) g/dL Albumin 3.2 L (3.5-5.0) g/dL Urine Color (Yellow) Urine Appearance (Clear) Urine pH (4.6-8.0) Ur Specific [place] (1.005-1.030) Urine Protein (Negative) Urine Glucose (UA) (Negative) mg/dL Urine Ketones (Negative) Urine Blood (Negative) Urine Nitrite (Negative) Urine Bilirubin (Negative) Urine Urobilinogen (0.2) mg/dL Ur Leukocyte Esterase (Negative) U Hyaline Cast (Auto) (0-2) /LPF Urine Microscopic RBC (0-5) /HPF Urine Microscopic WBC (0-5) /HPF Ur Epithelial Cells (None Seen) /HPF Urine Bacteria (None Seen) /HPF Urine Culture Reflexed (NO) Influenza Type A Ag (NEGATIVE) Influenza Type B Ag (NEGATIVE) RSV (PCR) (NEGATIVE) SARS-CoV-2 (PCR) (NEGATIVE) Slides for Path Review YES 07/22/24 07/22/24 07/22/24 Range/Units 16:05 16:06 16:06 WBC (3.98-10.04) x10^3/uL RBC (3.93-5.22) x10^6/uL Hgb (11.2-15.7) g/dL Hct (34.1-44.9) % MCV (79.4-94.8) fL MCH (25.6-32.2) pg MCHC (32.2-35.5) g/dL RDW (11.7-14.4) % Plt Count (182-369) x10^3/uL MPV (9.4-12.3) fL Gran % (34.0-71.1) % Immature Gran % (Auto) (0.001-0.429) % Nucleat RBC Rel Count (0.00-0.2) % Eos # (Auto) (0.04-0.36) x10^3/uL Immature Gran # (Auto) (0.001-0.031) x10^3u/L Absolute Lymphs (auto) (1.18-3.74) x10^3/uL Absolute Monos (auto) (0.24-0.86) x10^3/uL Absolute Nucleated RBC (0.00-0.012) x10^3u/L Lymphocytes % (19.3-51.7) % Monocytes % (4.7-12.5) % Eosinophils % (0.7-5.8) % Basophils % (0.1-1.2) % Absolute Granulocytes (1.56-6.13) x10^3/uL Basophils # (0.01-0.08) x10^3/uL PT (9.4-12.5) SECONDS INR (0.8-3.0) APTT (25.1-36.5) SECONDS D-Dimer (0.0-0.50) mg/L Puncture Site rt rad pCO2 30 L (35-45) mmHg pO2 71 L (75-100) mmHg Base Excess 4.9 H (-2.0-2.0) O2 Saturation 93.5 L (94-100) g/dF ABG pH 7.56 H* (7.35-7.45) ABG HCO3 26.9 (22-28) ABG O2 Sat (Measured) 95.7 (95-100) % Elkin Test y A-a Gradient 148 a/A Ratio 0.32 Hemoglobin 10.9 Carboxyhemoglobin 1.7 (0.0-6.9) % THgb Methemoglobin 0.6 L (1.4-1.5) % Temperature 37.0 C POC O2 Flow Rate 36 % Sodium (135-145) mmol/L Potassium 3.8 (3.5-5.1) mmol/L Chloride (98-107) mmol/L Carbon Dioxide (22-30) mmol/L Anion Gap (5-15) MEQ/L BUN (7-17) mg/dL Creatinine (0.52-1.04) mg/dL Estimated GFR ML/MIN Glucose (74-106) mg/dL Lactic Acid 1.5 (0.4-2.0) Calcium (8.4-10.2) mg/dL Total Bilirubin (0.2-1.3) mg/dL AST (14-36) U/L ALT (0-35) U/L Alkaline Phosphatase (38-126) U/L Troponin I < 0.012 (0.000-0.033) ng/mL Serum Total Protein (6.3-8.2) g/dL Albumin (3.5-5.0) g/dL Urine Color (Yellow) Urine Appearance (Clear) Urine pH (4.6-8.0) Ur Specific [place] (1.005-1.030) Urine Protein (Negative) Urine Glucose (UA) (Negative) mg/dL Urine Ketones (Negative) Urine Blood (Negative) Urine Nitrite (Negative) Urine Bilirubin (Negative) Urine Urobilinogen (0.2) mg/dL Ur Leukocyte Esterase (Negative) U Hyaline Cast (Auto) (0-2) /LPF Urine Microscopic RBC (0-5) /HPF Urine Microscopic WBC (0-5) /HPF Ur Epithelial Cells (None Seen) /HPF Urine Bacteria (None Seen) /HPF Urine Culture Reflexed (NO) Influenza Type A Ag (NEGATIVE) Influenza Type B Ag (NEGATIVE) RSV (PCR) (NEGATIVE) SARS-CoV-2 (PCR) (NEGATIVE) Slides for Path Review 07/22/24 07/22/24 07/22/24 Range/Units 16:20 20:15 23:30 WBC (3.98-10.04) x10^3/uL RBC (3.93-5.22) x10^6/uL Hgb (11.2-15.7) g/dL Hct (34.1-44.9) % MCV (79.4-94.8) fL MCH (25.6-32.2) pg MCHC (32.2-35.5) g/dL RDW (11.7-14.4) % Plt Count (182-369) x10^3/uL MPV (9.4-12.3) fL Gran % (34.0-71.1) % Immature Gran % (Auto) (0.001-0.429) % Nucleat RBC Rel Count (0.00-0.2) % Eos # (Auto) (0.04-0.36) x10^3/uL Immature Gran # (Auto) (0.001-0.031) x10^3u/L Absolute Lymphs (auto) (1.18-3.74) x10^3/uL Absolute Monos (auto) (0.24-0.86) x10^3/uL Absolute Nucleated RBC (0.00-0.012) x10^3u/L Lymphocytes % (19.3-51.7) % Monocytes % (4.7-12.5) % Eosinophils % (0.7-5.8) % Basophils % (0.1-1.2) % Absolute Granulocytes (1.56-6.13) x10^3/uL Basophils # (0.01-0.08) x10^3/uL PT (9.4-12.5) SECONDS INR (0.8-3.0) APTT (25.1-36.5) SECONDS D-Dimer (0.0-0.50) mg/L Puncture Site pCO2 (35-45) mmHg pO2 (75-100) mmHg Base Excess (-2.0-2.0) O2 Saturation (94-100) g/dF ABG pH (7.35-7.45) ABG HCO3 (22-28) ABG O2 Sat (Measured) (95-100) % Elkin Test A-a Gradient a/A Ratio Hemoglobin Carboxyhemoglobin (0.0-6.9) % THgb Methemoglobin (1.4-1.5) % Temperature C POC O2 Flow Rate % Sodium (135-145) mmol/L Potassium (3.5-5.1) mmol/L Chloride (98-107) mmol/L Carbon Dioxide (22-30) mmol/L Anion Gap (5-15) MEQ/L BUN (7-17) mg/dL Creatinine (0.52-1.04) mg/dL Estimated GFR ML/MIN Glucose (74-106) mg/dL Lactic Acid (0.4-2.0) Calcium (8.4-10.2) mg/dL Total Bilirubin (0.2-1.3) mg/dL AST (14-36) U/L ALT (0-35) U/L Alkaline Phosphatase (38-126) U/L Troponin I 0.016 (0.000-0.033) ng/mL Serum Total Protein (6.3-8.2) g/dL Albumin (3.5-5.0) g/dL Urine Color Yellow (Yellow) Urine Appearance Clear (Clear) Urine pH 7.5 (4.6-8.0) Ur Specific [place] 1.010 (1.005-1.030) Urine Protein Negative (Negative) Urine Glucose (UA) Negative (Negative) mg/dL Urine Ketones Negative (Negative) Urine Blood Negative (Negative) Urine Nitrite Negative (Negative) Urine Bilirubin Negative (Negative) Urine Urobilinogen 0.2 (0.2) mg/dL Ur Leukocyte Esterase Trace A (Negative) U Hyaline Cast (Auto) NONE SEEN (0-2) /LPF Urine Microscopic RBC 0-2 (0-5) /HPF Urine Microscopic WBC 0-2 (0-5) /HPF Ur Epithelial Cells None Seen (None Seen) /HPF Urine Bacteria None Seen (None Seen) /HPF Urine Culture Reflexed NO (NO) Influenza Type A Ag NEGATIVE (NEGATIVE) Influenza Type B Ag NEGATIVE (NEGATIVE) RSV (PCR) NEGATIVE (NEGATIVE) SARS-CoV-2 (PCR) NEGATIVE (NEGATIVE) Slides for Path Review 07/23/24 07/23/24 07/23/24 Range/Units 02:22 02:22 02:22 WBC 11.5 H (3.98-10.04) x10^3/uL RBC 3.33 L (3.93-5.22) x10^6/uL Hgb 9.6 L (11.2-15.7) g/dL Hct 31.3 L (34.1-44.9) % MCV 94.0 (79.4-94.8) fL MCH 28.8 (25.6-32.2) pg MCHC 30.7 L (32.2-35.5) g/dL RDW 16.7 H (11.7-14.4) % Plt Count 211 (182-369) x10^3/uL MPV 8.9 L (9.4-12.3) fL Gran % 92.1 H (34.0-71.1) % Immature Gran % (Auto) 0.5 H (0.001-0.429) % Nucleat RBC Rel Count 0.0 (0.00-0.2) % Eos # (Auto) 0.07 (0.04-0.36) x10^3/uL Immature Gran # (Auto) 0.06 H (0.001-0.031) x10^3u/L Absolute Lymphs (auto) 0.21 L (1.18-3.74) x10^3/uL Absolute Monos (auto) 0.55 (0.24-0.86) x10^3/uL Absolute Nucleated RBC 0.00 (0.00-0.012) x10^3u/L Lymphocytes % 1.8 L (19.3-51.7) % Monocytes % 4.8 (4.7-12.5) % Eosinophils % 0.6 L (0.7-5.8) % Basophils % 0.2 (0.1-1.2) % Absolute Granulocytes 10.62 H (1.56-6.13) x10^3/uL Basophils # 0.02 (0.01-0.08) x10^3/uL PT (9.4-12.5) SECONDS INR (0.8-3.0) APTT (25.1-36.5) SECONDS D-Dimer (0.0-0.50) mg/L Puncture Site pCO2 (35-45) mmHg pO2 (75-100) mmHg Base Excess (-2.0-2.0) O2 Saturation (94-100) g/dF ABG pH (7.35-7.45) ABG HCO3 (22-28) ABG O2 Sat (Measured) (95-100) % Elkin Test A-a Gradient a/A Ratio Hemoglobin Carboxyhemoglobin (0.0-6.9) % THgb Methemoglobin (1.4-1.5) % Temperature C POC O2 Flow Rate % Sodium 140 (135-145) mmol/L Potassium 4.5 (3.5-5.1) mmol/L Chloride 105 (98-107) mmol/L Carbon Dioxide 27 (22-30) mmol/L Anion Gap 12.6 (5-15) MEQ/L BUN 17 (7-17) mg/dL Creatinine 0.83 (0.52-1.04) mg/dL Estimated GFR 70.8 ML/MIN Glucose 124 H (74-106) mg/dL Lactic Acid (0.4-2.0) Calcium 9.5 (8.4-10.2) mg/dL Total Bilirubin 0.80 (0.2-1.3) mg/dL AST 47 H (14-36) U/L ALT 52 H (0-35) U/L Alkaline Phosphatase 184 H (38-126) U/L Troponin I < 0.012 (0.000-0.033) ng/mL Serum Total Protein 6.1 L (6.3-8.2) g/dL Albumin 3.0 L (3.5-5.0) g/dL Urine Color (Yellow) Urine Appearance (Clear) Urine pH (4.6-8.0) Ur Specific [place] (1.005-1.030) Urine Protein (Negative) Urine Glucose (UA) (Negative) mg/dL Urine Ketones (Negative) Urine Blood (Negative) Urine Nitrite (Negative) Urine Bilirubin (Negative) Urine Urobilinogen (0.2) mg/dL Ur Leukocyte Esterase (Negative) U Hyaline Cast (Auto) (0-2) /LPF Urine Microscopic RBC (0-5) /HPF Urine Microscopic WBC (0-5) /HPF Ur Epithelial Cells (None Seen) /HPF Urine Bacteria (None Seen) /HPF Urine Culture Reflexed (NO) Influenza Type A Ag (NEGATIVE) Influenza Type B Ag (NEGATIVE) RSV (PCR) (NEGATIVE) SARS-CoV-2 (PCR) (NEGATIVE) Slides for Path Review YES Radiology Exams: Radiology Procedures Category Date Time Status CHEST WITH CONTRAST [CT] Stat Exams 07/22/24 16:15 Completed ECHO W/2D AND DOPPLER [US] Routine Exams 07/23/24 10:22 Ordered Assessment/Plan (1) Pneumonia Current Visit: Yes Status: Acute Qualifiers: Pneumonia type: due to unspecified organism Laterality: bilateral Lung location: unspecified part of lung Qualified Code(s): J18.9 - Pneumonia, unspecified organism Code(s): J18.9 - PNEUMONIA, UNSPECIFIED ORGANISM (2) Acute respiratory failure with hypoxia Current Visit: Yes Status: Acute Code(s): J96.01 - ACUTE RESPIRATORY FAILURE WITH HYPOXIA (3) Leukocytosis Current Visit: Yes Status: Acute Code(s): D72.829 - ELEVATED WHITE BLOOD CELL COUNT, UNSPECIFIED (4) Shortness of breath Current Visit: No Status: Acute Assessment & Plan: 1) Pneumonia Current Visit: Yes Status: Acute Qualifiers: Pneumonia type: due to unspecified organism Laterality: bilateral Lung location: unspecified part of lung Qualified Code(s): J18.9 - Pneumonia, unspecified organism Assessment & Plan: Patient has persistent symptoms despite treatment with amoxicillin. Placed on IV Zosyn. Monitor clinical course. WBC 11.5- improved 3lNC 90%- baseline 3-4 LNC CBC, CMP reviewed Chest CT negative for PE- reviewed D-dimer 4.02 Code(s): J18.9 - PNEUMONIA, UNSPECIFIED ORGANISM (2) Acute respiratory failure with hypoxia Current Visit: Yes Status: Acute Assessment & Plan: Antibiotics. Nebulizers. No wheezing on auscultation. Wean O2 to 2LPM baseline as tolerated. Incentive spirometry for atelectasis. PT for mobilization. Consider rehab vs. swing bed at d/c Follow Dr. Trujillo - oncology for hx lung Ca with chemo/ radiation Follows Dr. Peace for Pulm Code(s): J96.01 - ACUTE RESPIRATORY FAILURE WITH HYPOXIA (3) Leukocytosis Current Visit: Yes Status: Acute Assessment & Plan: Antibiotics. Follow trend. WBC 11.5- improved Code(s): D72.829 - ELEVATED WHITE BLOOD CELL COUNT, UNSPECIFIED (4) Shortness of breath Current Visit: No Status: Acute Assessment & Plan: Pulmonary regimen as noted above. Increased with activity PT eval and treat Code(s): R06.02 - SHORTNESS OF BREATH Code(s): R06.02 - SHORTNESS OF BREATH (5) Obesity (BMI 30.0-34.9) Current Visit: No Status: Chronic Assessment & Plan: - advised diet and exercise control - would benefit from pulm rehab OP VTE: Lovenox Next of KIN: D/C plan: 1-2- days Code status: SCO/DNR Code(s): E66.9 - OBESITY, UNSPECIFIED
[2024-07-23] MEDS: Piperacillin/Tazobactam 2.25 GM 2.25 GM in Sodium Chloride 100ML MINI-BAG PLUS 100 ML IV SCH (12:41)
[2024-07-23] MEDS: Lasix 20 MG/2 ML IV SCH (12:41)
[2024-07-23] MEDS ORDERED: Sodium Chloride 3 ML UD NEBULES IH ONE (17:36)
[2024-07-23] MEDS: Xopenex 1.25 MG/0.5 ML UD NEBULE IH PRN (17:38)
[2024-07-23] MEDS: Sodium Chloride 3 ML UD NEBULES IH PRN (17:38)
[2024-07-23] MEDS ORDERED: Advair Hfa 115/21 Common canister IH SCH (19:00)
[2024-07-24 00:10] LABS: A-aADO2 540; ABG HEMOGLOBIN 11.7; ABG POTASSIUM 4.3 (3.5-5.1); ABG SITE LEFT BRACHIAL; ARTERIAL BLD GAS O2 SATURATION 88.7 % (95-100); ARTERIAL BLOOD GAS BASE EXCESS 7.9 (-2.0-2.0); ARTERIAL BLOOD GAS FIO2 90 %; ARTERIAL BLOOD GAS PCO2 36 mmHg (35-45); ARTERIAL BLOOD GAS PO2 57 mmHg (75-100); ARTERIAL BLOOD GAS pH 7.54 (7.35-7.45); CARBOXYHEMOGLOBIN 0.9 % THgb (0.0-6.9); HCO3- 30.8 (22-28); HGB O2 SAT 87.3 g/dF (94-100); Methhemoglobin 0.7 % (1.4-1.5)
[2024-07-24] MEDS: TYLENOL 325 MG PO PRN (00:17)
[2024-07-24 05:15] LABS: Absolute Neutrophil Ct (ANC) 10.66 x10^3/uL (1.56-6.13); BASOPHIL % 0.2 % (0.1-1.2); Basophil (Absolute #) 0.02 x10^3/uL (0.01-0.08); Eosinophil % 1.1 % (0.7-5.8); Eosinophil (Absolute #) 0.13 x10^3/uL (0.04-0.36); IMMATURE GRAN # 0.04 x10^3u/L (0.001-0.031); IMMATURE GRAN % 0.3 % (0.001-0.429); Lymphocyte (Absolute #) 0.21 x10^3/uL (1.18-3.74); Lymphocytes % 1.8 % (19.3-51.7); Mean Cell Volume 92.5 fL (79.4-94.8); Mean Corpuscular Hemoglobin 28.9 pg (25.6-32.2); Mean Corpuscular Hgb Concent. 31.3 g/dL (32.2-35.5); Mean Platelet Volume 9.4 fL (9.4-12.3); Monocyte (Absolute #) 0.67 x10^3/uL (0.24-0.86); Monocytes % 5.7 % (4.7-12.5); Neutrophil % 90.9 % (34.0-71.1); Platelet Count 243 x10^3/uL (182-369); Red Blood Count 3.46 x10^6/uL (3.93-5.22); Red Cell Distribution Width 16.9 % (11.7-14.4); White Blood Count 11.7 x10^3/uL (3.98-10.04)
[2024-07-24 05:35] LABS: ALBUMIN 3.5 g/dL (3.5-5.0); ANION GAP 11.3 MEQ/L (5-15); BILIRUBIN,TOTAL 1.1 mg/dL (0.2-1.3); Calcium 9.9 mg/dL (8.4-10.2); Creatinine 1 1.3 mg/dL (0.52-1.04); EST GLOMERULAR FILTRATION RATE 41.3 ML/MIN; Potassium 3.9 mmol/L (3.5-5.1); Total Protein 7.3 g/dL (6.3-8.2)
[2024-07-24 07:13] LABS: Slide Review 1 YES
[2024-07-24] MEDS: ENOXAPARIN SODIUM SQ SCH (10:24)
[2024-07-24] MEDS: Maxzide-25MG Tablet PO SCH (10:24)
[2024-07-24] MEDS: solu-MEDROL 40 MG, Sterile H2O 10 ml 1 ML IV SCH (10:25)
[2024-07-24] MEDS ORDERED: PATIENT OWN MEDICATION PO PRN (12:00)
[2024-07-24 12:43] VITALS: O2SAT 93
--- NOTE | 2024-07-24 13:50 | PCM.NOTE ---
Date and Time: 07/24/24 1348 Subjective Assessment: 07/23/24 is a 79 year old female with a history of lung cancer (completed radiation therapy within this past year, and has a port in place), chronic hypoxic respiratory failure (on 2LPM at baseline), and hypertension. She presented to ED on 07/22/24 with dyspnea for the past 10 days. She had recently been treated with amoxicillin for a pneumonia, and completed the course on the day prior to admission. Despite this treatment, the patient has felt weak and had shortness of breath. She does not report hemoptysis, chest pain, fevers, chills, nausea or vomiting. Imaging in the ED demonstrated no evidence of PE, but persistent infiltrate and atelectasis. She also has a right small pleural effusion. She has severe activity intolerance and O2 drops into he 70's when up and walking. She may need rehab at d/c. Lasix IV added today as she has crackles in lung bases. Echo ordered. She denies CP, Abd. pain,N/V/D. 07/24/24 Pt resting in bed. Overnight sxs worsened and pt became severely short of breath and was placed on 60% high flow O2 by RT. She continues to have increased SOB and tachycardia. Pulmonology consulted and Dr. Peace is unable to see pt today or this weekend. Discussed with pt and the opportunity to transfer to a higher level of care. At is time they want to stay in [place]. She does not want intubated and explained she is DNR. Will continue antibiotics, steroids increased. Pt denies CP, Abd pain, N/V. She does have diarrhea. Will order c- diff. - Review of Systems Constitutional: No Fever, No Chills Eyes: No Symptoms Ears, Nose, & Throat: No Symptoms Respiratory: Short Of Breath, Wheezing, No Cough Cardiac: No Chest Pain, No Edema, No Syncope Abdominal/Gastrointestinal: Diarrhea, No Abdominal Pain, No Nausea, No Vomiting Genitourinary Symptoms: No Dysuria Musculoskeletal: No Back Pain, No Neck Pain Skin: No Rash Neurological: No Dizziness, No Focal Weakness, No Sensory Changes Psychological: No Symptoms Endocrine: No Symptoms Hematologic/Lymphatic: No Symptoms Immunological/Allergic: No Symptoms Objective Exam General Appearance: moderate distress, alert Neurologic Exam: alert, oriented x 3, cooperative, normal mood/affect, nml cerebellar function, sensation nml, No motor deficits Skin Exam: normal color, warm, dry Eye Exam: PERRL, EOMI, eyes nml inspection Ears, Nose, Throat Exam: normal ENT inspection, pharynx normal, moist mucous membranes Neck Exam: normal inspection, non-tender, supple, full range of motion Respiratory Exam: crackles/rales, wheezing, No respiratory distress Cardiovascular Exam: regular rate/rhythm, normal heart sounds, tachycardia Gastrointestinal/Abdomen Exam: soft, tenderness, No mass Extremity Exam: normal inspection, normal range of motion Back Exam: normal inspection, normal range of motion, No CVA tenderness, No vertebral tenderness Pelvic Exam: deferred Rectal Exam: deferred Objective Data Vital Signs: Vital Signs - 24 hr Temp Pulse Resp BP Pulse Ox 07/24/24 12:00 97.7 F 111 H 22 108/63 93 L 07/24/24 08:00 98.3 F 98 H 41 H 109/64 98 07/24/24 07:49 91 L 07/24/24 07:42 103 H 36 H 68 L 07/24/24 07:29 97 H 28 H 97 07/24/24 04:00 98.7 F 93 H 36 H 127/65 99 07/23/24 23:51 101.1 F 127 H 50 H 131/79 91 L 07/23/24 20:00 96.9 F 108 H 28 H 137/66 96 07/23/24 17:43 106 H 22 92 L 07/23/24 16:00 97.1 F 103 H 22 118/61 Pain Assessment - Last Documented Pain Intensity 0 Pain Scale Used 0-10 Pain Scale Intake and Output: Intake & Output 07/22/24 07/23/24 07/24/24 07/25/24 11:59 11:59 11:59 11:59 Intake Total 660 120 Output Total 400 Balance 260 120 Weight 71.1 kg 71.1 kg Lab Results: Lab Results-Last 24 Hours 07/24/24 07/24/24 07/24/24 Range/Units 00:00 04:17 04:17 WBC 11.7 H (3.98-10.04) x10^3/uL RBC 3.46 L (3.93-5.22) x10^6/uL Hgb 10.0 L (11.2-15.7) g/dL Hct 32.0 L (34.1-44.9) % MCV 92.5 (79.4-94.8) fL MCH 28.9 (25.6-32.2) pg MCHC 31.3 L (32.2-35.5) g/dL RDW 16.9 H (11.7-14.4) % Plt Count 243 (182-369) x10^3/uL MPV 9.4 (9.4-12.3) fL Gran % 90.9 H (34.0-71.1) % Immature Gran % (Auto) 0.3 (0.001-0.429) % Nucleat RBC Rel Count 0.0 (0.00-0.2) % Eos # (Auto) 0.13 (0.04-0.36) x10^3/uL Immature Gran # (Auto) 0.04 H (0.001-0.031) x10^3u/L Absolute Lymphs (auto) 0.21 L (1.18-3.74) x10^3/uL Absolute Monos (auto) 0.67 (0.24-0.86) x10^3/uL Absolute Nucleated RBC 0.00 (0.00-0.012) x10^3u/L Lymphocytes % 1.8 L (19.3-51.7) % Monocytes % 5.7 (4.7-12.5) % Eosinophils % 1.1 (0.7-5.8) % Basophils % 0.2 (0.1-1.2) % Absolute Granulocytes 10.66 H (1.56-6.13) x10^3/uL Basophils # 0.02 (0.01-0.08) x10^3/uL Puncture Site LEFT BRACHIAL pCO2 36 (35-45) mmHg pO2 57 L (75-100) mmHg Base Excess 7.9 H (-2.0-2.0) O2 Saturation 87.3 L (94-100) g/dF ABG pH 7.54 H (7.35-7.45) ABG HCO3 30.8 H* (22-28) ABG O2 Sat (Measured) 88.7 L (95-100) % Elkin Test NOT APPLICABLE A-a Gradient 540 a/A Ratio 0.10 Hemoglobin 11.7 Carboxyhemoglobin 0.9 (0.0-6.9) % THgb Methemoglobin 0.7 L (1.4-1.5) % Potassium 4.3 3.9 (3.5-5.1) Temperature 37.0 C POC O2 Flow Rate 90 % Sodium 137 (135-145) mmol/L Chloride 100 (98-107) mmol/L Carbon Dioxide 29 (22-30) mmol/L Anion Gap 11.3 (5-15) MEQ/L BUN 21 H (7-17) mg/dL Creatinine 1.30 H (0.52-1.04) mg/dL Estimated GFR 41.3 ML/MIN Glucose 119 H (74-106) mg/dL Calcium 9.9 (8.4-10.2) mg/dL Total Bilirubin 1.10 (0.2-1.3) mg/dL AST 38 H (14-36) U/L ALT 46 H (0-35) U/L Alkaline Phosphatase 187 H (38-126) U/L Serum Total Protein 7.3 (6.3-8.2) g/dL Albumin 3.5 (3.5-5.0) g/dL Slides for Path Review YES Radiology Exams: Radiology Procedures Category Date Time Status CHEST WITH CONTRAST [CT] Stat Exams 07/22/24 16:15 Completed ECHO W/2D AND DOPPLER [US] Routine Exams 07/23/24 11:30 Taken Multi-Disciplinary Progress Notes: Multi-Disciplinary Progress Notes 07/24/24 12:21 Radiology Note by MARLON WATTERS TRANSTHORACIC ECHOCARDIOGRAM 07/23/2024: 1. Normal chamber sizes. 2. Mild concentric left ventricular hypertrophy. 3. Normal left ventricular systolic function without focal wall motion abnormalities. Estimated EF 60%. 4. Mild diastolic dysfunction. 5. Normal right ventricular systolic function. 6. Moderate aortic sclerosis without stenosis. Unable to exclude a bicuspid aortic valve. 7. Doppler: Trace aortic regurgitation. 8. Normal pulmonary artery systolic pressure. 9. Normal right atrial pressure. 10. Trivial posterior pericardial effusion. No echocardiographic evidence of tamponade. Marlon Watters MD [employer] Initialized on 07/24/24 12:21 - END OF NOTE 07/24/24 11:17 Physical Therapy Note by Dmitry(L#[id number]),Elen De Jesus.Nelli. HELD THIS A.M. D/T LOW O2 SATS AT REST. WILL CHECK ON PT. THIS P.M. Initialized on 07/24/24 11:17 - END OF NOTE 07/24/24 07:43 Respiratory Note by Gema Payan PATIENT UP TO BEDSIDE COMMODE. PATIENT EXTREMELY SOB AND INCREASED RR 36 HR 103 JUST SITTING ON SIDE OF THE BED TO GO TO [facility]. PATIENT'S O2 SAT DECREASED TO 68% ON 45LPM AND 50% FIO2 PER HIGH FLOW. INCREASED FIO2 BACK TO 60% AND OFFERED BREATHING TREATMENT TO PATIENT. PATIENT GIVEN BREATHING TREATMENT AT THIS TIME. RR CONTINUES TO BE 36 O2 SAT INCREASED TO 91% AFTER TREATMENT. HR 97 PATIENT STATES SHE IS MUCH BETTER AFTER TREATMENT. Initialized on 07/24/24 07:43 - END OF NOTE 07/24/24 07:20 Pharmacy Note by Marcio Varner Lovenox decreased to 30mg dose per renal dosing policy. Estimated crcl is 23ml/min. Initialized on 07/24/24 07:20 - END OF NOTE 07/24/24 01:49 Respiratory Note by Erin Mojica RT CALLED TO ASSESS PATIENT DUE TO TACHYPNEA. PATIENT APPEARED FLUSH AND WARM TO TOUCH. RESPIRATORY RATE 48. PATIENT C/O SOB. ABG DRAWN INDICATING OXYGENATION FAILURE. PLACED ON HEATED HIGH FLOW OF 50L 100%. TOLERATING WELL. SPO2 IMPROVED. WILL TITRATE TOLERATED. PATIENT FEBRILE AND GIVEN TYLENOL BY RN. CONDITION IMPROVED. Initialized on 07/24/24 01:49 - END OF NOTE 07/23/24 17:48 Respiratory Note by Yesenia Lopez 115/21 DISCONTINUED-PT REFUSING. Initialized on 07/23/24 17:48 - END OF NOTE 07/23/24 13:52 Case Management Note by Rosa Tian [facility] REH[facility] REFERRAL GIVEN TO GENIEFILI Initialized on 07/23/24 13:52 - END OF NOTE Assessment/Plan (1) Pneumonia Current Visit: Yes Status: Acute Qualifiers: Pneumonia type: due to unspecified organism Laterality: bilateral Lung location: unspecified part of lung Qualified Code(s): J18.9 - Pneumonia, unspecified organism Code(s): J18.9 - PNEUMONIA, UNSPECIFIED ORGANISM (2) Acute respiratory failure with hypoxia Current Visit: Yes Status: Acute Code(s): J96.01 - ACUTE RESPIRATORY FAILURE WITH HYPOXIA (3) Leukocytosis Current Visit: Yes Status: Acute Code(s): D72.829 - ELEVATED WHITE BLOOD CELL COUNT, UNSPECIFIED (4) Shortness of breath Current Visit: No Status: Acute Code(s): R06.02 - SHORTNESS OF BREATH (5) Obesity (BMI 30.0-34.9) Current Visit: No Status: Chronic Assessment & Plan: 1) Pneumonia Current Visit: Yes Status: Acute Qualifiers: Pneumonia type: due to unspecified organism Laterality: bilateral Lung location: unspecified part of lung Qualified Code(s): J18.9 - Pneumonia, unspecified organism Assessment & Plan: Patient has persistent symptoms despite treatment with amoxicillin. Placed on IV Zosyn. Monitor clinical course. WBC 11.5- improved 3lNC 90%- baseline 3-4 LNC CBC, CMP reviewed Chest CT negative for PE- reviewed D-dimer 4.02 07/24 - ABG reviewed - CBC, CMP reviewed - Worsening sxs overnight- now on 60% high flow O2 - Pulm no t available today or over the weekend- pt wants to stay at [facility] at this time. - IV antibiotocs, Steriods Code(s): J18.9 - PNEUMONIA, UNSPECIFIED ORGANISM (2) Acute respiratory failure with hypoxia Current Visit: Yes Status: Acute Assessment & Plan: Antibiotics. Nebulizers. No wheezing on auscultation. Wean O2 to 2LPM baseline as tolerated. Incentive spirometry for atelectasis. PT for mobilization. Consider rehab vs. swing bed at d/c Follow Dr. Trujillo - oncology for hx lung Ca with chemo/ radiation Follows Dr. Peace for Pulm Code(s): J96.01 - ACUTE RESPIRATORY FAILURE WITH HYPOXIA (3) Leukocytosis Current Visit: Yes Status: Acute Assessment & Plan: Antibiotics. Follow trend. WBC 11.5- improved 07/24 WBC 11.7 Code(s): D72.829 - ELEVATED WHITE BLOOD CELL COUNT, UNSPECIFIED (4) Shortness of breath Current Visit: No Status: Acute Assessment & Plan: Pulmonary regimen as noted above. Increased with activity PT eval and treat Code(s): R06.02 - SHORTNESS OF BREATH Code(s): R06.02 - SHORTNESS OF BREATH (5) Obesity (BMI 30.0-34.9) Current Visit: No Status: Chronic Assessment & Plan: - advised diet and exercise control - would benefit from pulm rehab OP 6. Diarrhea - C-diff- pending VTE: Lovenox Next of KIN: D/C plan: 2-3- days Code status: SCO/DNR Code(s): E66.9 - OBESITY, UNSPECIFIED Code(s): E66.9 - OBESITY, UNSPECIFIED (6) Diarrhea Current Visit: Yes Status: Acute Code(s): R19.7 - DIARRHEA, UNSPECIFIED
--- NOTE | 2024-07-24 16:19 | PCM.DS ---
Discharge Summary Date of Admission: 07/22/24 19:51 Date of Discharge: 07/24/24 Admitting Physician: JEREL MOHAMUD MD Consults: Consults on Case 07/24/24 10:24 Consult Pulmonology ROUTINE Primary Care Provider: TOOTIE MRALEY DO Allergies Allergies tetracycline Allergy (Verified 07/22/24 16:02) Hospital Summary - Hospital Course Hospital Course: 07/23/24 is a 79 year old female with a history of lung cancer (completed radiation therapy within this past year, and has a port in place), chronic hypoxic respiratory failure (on 2LPM at baseline), and hypertension. She present ed to ED on 07/22/24 with dyspnea for the past 10 days. She had recently been treated with amoxicillin for a pneumonia, and completed the course on the day prior to admission. Despite this treatment, the patient has felt weak and had shortness of breath. She does not report hemoptysis, chest pain, fevers, chills, nausea or vomiting. Imaging in the ED demonstrated no evidence of PE, but persistent infiltrate and atelectasis. She also has a right small pleural effusion. She has severe activity intolerance and O2 drops into he 70's when up and walking. She may need rehab at d/c. Lasix IV added today as she has crackles in lung bases. Echo ordered. She denies CP, Abd. pain,N/V/D. 07/24/24 Pt resting in bed. Overnight sxs worsened and pt became severely short of breath and was placed on 60% high flow O2 by RT. She continues to have increased SOB and tachycardia. Pulmonology consulted and Dr. Peace is unable to see pt today or this weekend. Discussed with pt and the opportunity to transfer to a higher level of care. At is time they want to stay in [place]. She does not want intubated and explained she is DNR. Will continue antibiotics, steroids increased. Pt denies CP, Abd pain, N/V. She does have diarrhea. Will order c- diff. * Pt requesting transfer to higher level of care since pulm is unable to see pt. Pt originally wanted to go to [facility] but the hospitalist would not accept as they do not have pulm this weekend. Pt asked to be transferred to [place] and they have accepted to the ICU by hospitalist. - Vitals & Intake/Output Vital Signs: Vital Signs Temperature 97.7 F 07/24/24 12:00 Pulse Rate 111 H 07/24/24 12:00 Respiratory Rate 22 07/24/24 12:00 Blood Pressure 108/63 07/24/24 12:00 O2 Sat by Pulse Oximetry 93 L 07/24/24 12:00 Intake & Output: Intake & Output 07/22/24 07/23/24 07/24/24 07/25/24 11:59 11:59 11:59 11:59 Intake Total 660 120 Output Total 400 Balance 260 120 Weight 71.1 kg 71.1 kg - Lab Result Diagrams: 07/24/24 04:17 07/24/24 04:17 Lab Results-Last 24 Hrs: Lab Results-Last 24 Hours 07/24/24 07/24/24 07/24/24 Range/Units 00:00 04:17 04:17 WBC 11.7 H (3.98-10.04) x10^3/uL RBC 3.46 L (3.93-5.22) x10^6/uL Hgb 10.0 L (11.2-15.7) g/dL Hct 32.0 L (34.1-44.9) % MCV 92.5 (79.4-94.8) fL MCH 28.9 (25.6-32.2) pg MCHC 31.3 L (32.2-35.5) g/dL RDW 16.9 H (11.7-14.4) % Plt Count 243 (182-369) x10^3/uL MPV 9.4 (9.4-12.3) fL Gran % 90.9 H (34.0-71.1) % Immature Gran % (Auto) 0.3 (0.001-0.429) % Nucleat RBC Rel Count 0.0 (0.00-0.2) % Eos # (Auto) 0.13 (0.04-0.36) x10^3/uL Immature Gran # (Auto) 0.04 H (0.001-0.031) x10^3u/L Absolute Lymphs (auto) 0.21 L (1.18-3.74) x10^3/uL Absolute Monos (auto) 0.67 (0.24-0.86) x10^3/uL Absolute Nucleated RBC 0.00 (0.00-0.012) x10^3u/L Lymphocytes % 1.8 L (19.3-51.7) % Monocytes % 5.7 (4.7-12.5) % Eosinophils % 1.1 (0.7-5.8) % Basophils % 0.2 (0.1-1.2) % Absolute Granulocytes 10.66 H (1.56-6.13) x10^3/uL Basophils # 0.02 (0.01-0.08) x10^3/uL Puncture Site LEFT BRACHIAL pCO2 36 (35-45) mmHg pO2 57 L (75-100) mmHg Base Excess 7.9 H (-2.0-2.0) O2 Saturation 87.3 L (94-100) g/dF ABG pH 7.54 H (7.35-7.45) ABG HCO3 30.8 H* (22-28) ABG O2 Sat (Measured) 88.7 L (95-100) % Elkin Test NOT APPLICABLE A-a Gradient 540 a/A Ratio 0.10 Hemoglobin 11.7 Carboxyhemoglobin 0.9 (0.0-6.9) % THgb Methemoglobin 0.7 L (1.4-1.5) % Potassium 4.3 3.9 (3.5-5.1) Temperature 37.0 C POC O2 Flow Rate 90 % Sodium 137 (135-145) mmol/L Chloride 100 (98-107) mmol/L Carbon Dioxide 29 (22-30) mmol/L Anion Gap 11.3 (5-15) MEQ/L BUN 21 H (7-17) mg/dL Creatinine 1.30 H (0.52-1.04) mg/dL Estimated GFR 41.3 ML/MIN Glucose 119 H (74-106) mg/dL Calcium 9.9 (8.4-10.2) mg/dL Total Bilirubin 1.10 (0.2-1.3) mg/dL AST 38 H (14-36) U/L ALT 46 H (0-35) U/L Alkaline Phosphatase 187 H (38-126) U/L Serum Total Protein 7.3 (6.3-8.2) g/dL Albumin 3.5 (3.5-5.0) g/dL Slides for Path Review YES Micro Results-Entire Visit: Microbiology 07/22/24 16:25 Blood Culture - Preliminary Blood 07/22/24 16:30 Blood Culture - Preliminary Blood - Radiology Exams Ordered Rad Exams-Entire Visit: Radiology Procedures Category Date Time Status CHEST WITH CONTRAST [CT] Stat Exams 07/22/24 16:15 Completed ECHO W/2D AND DOPPLER [US] Routine Exams 07/23/24 11:30 Taken - Procedures and Test Procedures and Tests throughout Hospitalization: Therapy Orders & Screens 07/22/24 17:39 Respiratory Therapy Assessment DAILY Comment: 07/22/24 20:05 Incentive Spirometry UD Comment: pneumonia Diagnosis: pneumonia Respiratory Therapy Consult ROUTINE Comment: Reason For Exam: pneumonia, acute on chronic respiratory failure Diagnosis: pneumonia 07/22/24 21:00 ST Screen per Nursing Assess ONCE Comment: Protocol Order Physician Instructions: Greater than [address] Admission Screening Reason For Exam: Triggered on Admission Diagnosis: pneumonia CVA/Dyshpagia/Aphasia: No Cognitive Deficits: No Dehydration/Nutrition Deficit: No Reflux: No Oral-Motor Difficulties: No Pneumonia: Yes Mcc Resident: No Total Points: 5 07/22/24 22:11 Oxygen Oxymask LPM 4 lpm Comment: Diagnosis: pneumonia, acute on chronic respiratory failure 07/23/24 07:37 Respiratory MDI BID Comment: Diagnosis: pneumonia, acute on chronic respiratory failure 07/23/24 08:00 RT Screen per Nursing Assess ONCE Comment: Protocol Order Physician Instructions: Greater than 3 points order RT Admission Screen Reason For Exam: Triggered on Admission Diagnosis: pneumonia Diagnosis: pneumonia Pneumonia: No Home O2: Yes Asthma: No CHF: No Home CPAP/BIPAP: No Home Nebs/MDI: Yes Total Points: 10 ST Screen per Nursing Assess ONCE Comment: Protocol Order Physician Instructions: Greater than [address] Admission Screening Reason For Exam: Triggered on Admission Diagnosis: pneumonia CVA/Dyshpagia/Aphasia: No Cognitive Deficits: No Dehydration/Nutrition Deficit: No Reflux: No Oral-Motor Difficulties: No Pneumonia: Yes Mcc Resident: No Total Points: 5 07/23/24 08:30 PT Eval & Treat (MD Order) ONCE Reason for Eval:: Weakness Diagnosis: pneumonia 07/24/24 07:28 Oxygen High Flow per RT 50% Comment: Diagnosis: PNEUMONIA, ACUTE ON CHRONIC RESP FAILURE Discharge Exam General Appearance: moderate distress, anxiety Neurologic Exam: alert, oriented x 3, cooperative, nml cerebellar function, sensation nml, motor weakness, No motor deficits Eye Exam: PERRL, EOMI, eyes nml inspection Ears, Nose, Throat Exam: normal ENT inspection, pharynx normal, moist mucous membranes Neck Exam: normal inspection, non-tender, supple, full range of motion Respiratory Exam: crackles/rales, wheezing, No respiratory distress Cardiovascular Exam: regular rate/rhythm, normal heart sounds, tachycardia Gastrointestinal/Abdomen Exam: soft, No tenderness, No mass Pelvic Exam: deferred Rectal Exam: deferred Back Exam: normal inspection, normal range of motion, No CVA tenderness, No vertebral tenderness Extremity Exam: normal inspection, normal range of motion Skin Exam: normal color, warm, dry Final Diagnosis/Problem List - Final Discharge Diagnosis/Problem (1) Pneumonia Current Visit: Yes Status: Acute Code(s): J18.9 - PNEUMONIA, UNSPECIFIED ORGANISM (2) Acute respiratory failure with hypoxia Current Visit: Yes Status: Acute Code(s): J96.01 - ACUTE RESPIRATORY FAILURE WITH HYPOXIA (3) Leukocytosis Current Visit: Yes Status: Acute Code(s): D72.829 - ELEVATED WHITE BLOOD CELL COUNT, UNSPECIFIED (4) Shortness of breath Current Visit: No Status: Acute Code(s): R06.02 - SHORTNESS OF BREATH (5) Obesity (BMI 30.0-34.9) Current Visit: No Status: Chronic Code(s): E66.9 - OBESITY, UNSPECIFIED (6) Diarrhea Current Visit: Yes Status: Acute Assessment & Plan: 1) Pneumonia Current Visit: Yes Status: Acute Qualifiers: Pneumonia type: due to unspecified organism Laterality: bilateral Lung location: unspecified part of lung Qualified Code(s): J18.9 - Pneumonia, unspecified organism Assessment & Plan: Patient has persistent symptoms despite treatment with amoxicillin. Placed on IV Zosyn. Monitor clinical course. WBC 11.5- improved 3lNC 90%- baseline 3-4 LNC CBC, CMP reviewed Chest CT negative for PE- reviewed D-dimer 4.02 / - ABG reviewed - CBC, CMP reviewed - Worsening sxs overnight- now on 60% high flow O2 - Pulm no t available today or over the weekend- pt wants to stay at [facility] at this time. - IV antibiotocs, Steriods Code(s): J18.9 - PNEUMONIA, UNSPECIFIED ORGANISM (2) Acute respiratory failure with hypoxia Current Visit: Yes Status: Acute Assessment & Plan: Antibiotics. Nebulizers. No wheezing on auscultation. Wean O2 to 2LPM baseline as tolerated. Incentive spirometry for atelectasis. PT for mobilization. Consider rehab vs. swing bed at d/c Follow Dr. Trujillo - oncology for hx lung Ca with chemo/ radiation Follows Dr. Peace for Pulm Code(s): J96.01 - ACUTE RESPIRATORY FAILURE WITH HYPOXIA (3) Leukocytosis Current Visit: Yes Status: Acute Assessment & Plan: Antibiotics. Follow trend. WBC 11.5- improved 07/24 WBC 11.7 Code(s): D72.829 - ELEVATED WHITE BLOOD CELL COUNT, UNSPECIFIED (4) Shortness of breath Current Visit: No Status: Acute Assessment & Plan: Pulmonary regimen as noted above. Increased with activity PT eval and treat Code(s): R06.02 - SHORTNESS OF BREATH Code(s): R06.02 - SHORTNESS OF BREATH (5) Obesity (BMI 30.0-34.9) Current Visit: No Status: Chronic Assessment & Plan: - advised diet and exercise control - would benefit from pulm rehab OP 6. Diarrhea - C-diff- pending Code(s): E66.9 - OBESITY, UNSPECIFIED (6) Diarrhea Current Visit: Yes Status: Acute Code(s): R19.7 - DIARRHEA, UNSPECIFIED Code(s): R19.7 - DIARRHEA, UNSPECIFIED - Discharge Discharge Date: 07/24/24 Disposition: DC TO [facility] Condition: Stable Prescriptions: Continue Triamterene/Hydrochlorothiazid [Triamterene-Hctz 75-50 mg Tab] 1 each PO DAILY Albuterol 8 gm Mdi Hfa [Ventolin Hfa MDI] 18 gm IH Q4-6HPRN PRN 30 Days #1 inhaler PRN Reason: Shortness Of Breath/Wheezing Potassium Chloride Tab* [Klor Con] 20 meq PO BID 3 Days #12 tablet Ondansetron ODT 4 MG [Zofran Odt 4 mg] 4 mg PO Q6HPRN PRN PRN Reason: Nausea Magnesium Oxide 400 mg [Mag-Ox 400] 400 mg PO DAILY Prednisone 10 mg [Deltasone 10 mg] 10 tab PO DAILY Mirtazapine 15 mg PO HS Prochlorperazine Maleate 5 mg* [Compazine 5 MG] 10 mg PO BID Follow up with: TOOTIE MARLEY DO [Primary Care Provider] -
[2024-07-24 16:35] VITALS: BP 118/59; PULSE 108; RESP 21; TEMP 97.8
[2024-07-24 17:12] LABS: 027 TOX PROD PRESUMPTIVE NEGATIVE (NEGATIVE); TOXIGENIC C. DIFF ORG NEGATIVE (NEGATIVE)
[2024-07-24] MEDS ORDERED: IMODIUM 2 MG ONE (17:42)
[2024-07-24] MEDS: IMODIUM 2 MG PO PRN (17:43)
== END 2024-07-24 18:30 | disposition home or self-care (01) | DRG 193 ==
LOC: ED 15:59 → MED SURG 19:51 → OBSVTOIN 19:51
PROVIDERS: ADMIT Internal Medicine; ATTEND Internal Medicine
DX: J18.9 Pneumonia, unspecified organism (principal); J96.01 Acute respiratory failure with hypoxia; D72.829 Elevated white blood cell count, unspecified; E66.9 Obesity, unspecified; R19.7 Diarrhea, unspecified; I10 Essential (primary) hypertension; Z79.899 Other long term (current) drug therapy; Z99.81 Dependence on supplemental oxygen; Z85.118 Personal history of other malignant neoplasm of bronchus and lung
CPT/HCPCS: 0241U; 36000; 36415; 36600; 71260; 80053; 81001; 82375; 82803; 83605; 83880; 84484; 85025; 85379; 85610; 85730; 87040; 87493; 93005; 93306; 94640; 94760; 94762; 96360; 96374; 97163; 99285; Q3014; J1650; J1940; J2060; J2543; J2919; A9270-GY